=== PATIENT | female | born 1980 | race Caucasian/White ===

== ENCOUNTER 2019-09-24 10:00 | Emergency (ER) | payer SELFPAY ==
[2019-09-24 10:03] VITALS: BP 140/104; PULSE 107; RESP 17; TEMP 36.8; O2SAT 99; BMI 45.8
--- NOTE | 2019-09-24 10:06 | ED_ITS ---
Entered by Nav Seth, acting as scribe for Teja Byers DO Sep 24, 2019 10:00 HPI - General Adult General: Chief complaint: General Medical Stated complaint: DIZZY Time Seen by Provider: 09/24/19 10:10 History of Present Illness: HPI narrative: 38 yo female presents with dizziness. Pt states that she has been coughing and dealing with an upper respiratory cold. Pt states that she has had this for a few weeks. pt states that she was seen at her PCPs office the first week she had this, but she feels like she is getting worse. Pt states that she has had a fever off and on, it measured up to 101. 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 Associated symptoms: Reports dyspnea; Deny chest pain, malaise, nausea, rash or vomiting Review of Systems Const: Reports: fever, chills and body aches; Denies: change in appetite, fatigue or malaise ENMT: Denies: throat pain, ear pain, nasal discharge or nasal congestion Card: Denies: chest pain, edema, shortness of breath on exertion or shortness of breath when lying down Resp: Reports: shortness of breath and productive cough; Denies: non-productive cough GI: Denies: abdominal pain, nausea, vomiting, vomiting blood, coffee grounds in vomit, diarrhea, constipation, bloating, blood in stool or black tarry stool : Denies: flank pain, difficulty urinating, painful urination, urinary frequency or urinary urgency Skin/Breast: Denies: rash or itching PFSH ED PFSH: Statuses (acute, chronic, etc) shown below reflect problem list status as previously entered and may not be historically accurate Medical History Bronchitis (Acute) Headache (Acute) Surgical History History of cholecystectomy (Acute) Hx of tonsillectomy (Acute) Social History Smoking and tobacco status: current every day smoker Physical Exam Const: COMMON NORMALS: no apparent distress GENERAL APPEARANCE: cooperative and comfortable ORIENTATION/CONSCIOUSNESS: Yes awake, Yes oriented to person, Yes oriented to place and Yes oriented to time HENMT: COMMON NORMALS: normocephalic, head/scalp atraumatic, hearing grossly normal bilaterally, external ears normal, EAC's normal, TM's normal bilaterally, nasal mucous membranes and turbinates normal, moist oral mucous membranes and oropharynx normal HEAD & SCALP: normocephalic and atraumatic NOSE: nasal mucous membranes and turbinates normal EXTERNAL EAR: Yes external ears normal EXTERNAL AUDITORY CANAL: EAC's normal TYMPANIC MEMBRANE: TM's normal bilaterally Eye: COMMON NORMALS: PERRL, EOMs intact bilaterally, conjunctivae normal and no scleral icterus CONJUNCTIVA: Yes conjunctivae normal PUPIL: Yes PERRL Neck/C-Spine: COMMON NORMALS: full ROM, no lymphadenopathy, supple and no JVD Lymph: LYMPHATIC: no lymphadenopathy noted and no lymphedema noted Resp: COMMON NORMALS: normal respiratory effort, no retractions and no use of accessory muscles AUSCULTATION: wheezes (mild) throughout Cardio: COMMON NORMALS: no JVD, regular rate, regular rhythm and no murmurs RATE: regular rate RHYTHM: regular rhythm GI: COMMON NORMALS: soft to palpation and no hepatosplenomegaly AUSCULTATION: Yes normoactive bowel sounds PALPATION: Yes soft, No tender, No guarding and Yes no hepatosplenomegaly Extremity: COMMON NORMALS: normal to inspection, normal capillary refill, no clubbing, cyanosis or edema, no calf tenderness and no pedal edema Neuro: SENSORIUM/ORIENTATION: Yes oriented to person, Yes oriented to place and Yes oriented to time Skin: COMMON NORMALS: no rashes or lesions noted GENERAL SKIN EXAM: no rashes or lesions noted Course Vital Signs: Vital signs: Vital Signs Temperature 98.3 F 09/24/19 10:03 Pulse Rate 99 09/24/19 13:14 Respiratory Rate 18 09/24/19 13:14 Blood Pressure 139/100 09/24/19 13:14 Pulse Oximetry 99 09/24/19 13:14 [facility] - General Adult Lab Data: Labs: Lab Results 09/24/19 09/24/19 09/24/19 Range/Units 10:55 10:57 10:57 WBC 14.4 H (4.0-10.0) 10^3/ uL RBC 3.97 L (4.1-5.3) 10^6/u L Hgb 11.5 (11.5-15.3) g/dL Hct 34.4 L (37.0-47.0) % MCV 86.6 (81-99) fL MCH 29.0 (28.0-34.0) pg MCHC 33.4 (30.0-36.0) g/dL RDW 17.8 H (12.1-15.1) % Plt Count 268 (130-400) 10^3/c mm MPV 9.8 (7.4-10.4) fL Neut % (Auto) 73.5 % Lymph % (Auto) 17.1 % Oliver % (Auto) 6.4 % Eos % (Auto) 2.0 % Baso % (Auto) 0.6 % Neut # (Auto) 10.6 H (1.8-7.7) 10^3/u L Lymph # (Auto) 2.5 (0.8-4.8) 10^3/u L Oliver # (Auto) 0.9 (0.2-0.9) 10^3/u L Eos # (Auto) 0.3 (0.0-0.8) 10^3/u L Baso # (Auto) 0.1 (0.0-0.1) 10^3/u L Nucleated RBC % (a uto) 0 % Nucleated RBCs # 0.0 /100WBC Sodium 135 L (136-145) mmol/L Potassium 4.4 (3.5-5.1) mmol/L Chloride 100 (98-107) mmol/L Carbon Dioxide 26 (22-29) mmol/L Anion Gap 13.4 (5-19) BUN 10 (6-20) mg/dL Creatinine 0.5 (0.5-0.9) mg/dL GFR Calculation 138.8 H (90-130) mL/min Glucose 110 (65-115) mg/dL Calcium 9.5 (8.5-10.5) mg/dL Total Bilirubin 1.1 (0.15-1.2) mg/dL AST 15 (0-32) U/L ALT 15 (0-33) U/L Alkaline Phosphata se 94 (35-105) IU/L Total Protein 7.3 (6.6-8.7) g/dL Albumin 3.8 (3.5-5.2) g/dL Globulin 3.5 (1.3-4.6) g/dL HCG, Qual (Negative) Urine Color (Yellow) Urine Appearance (CLEAR) Urine pH (5-7) Ur Specific Gravit y (1.005-1.030) Urine Protein (Negative) Urine Glucose (UA) (Normal) Urine Ketones (Negative) Urine Occult Blood (Negative) Urine Nitrate (Negative) Urine Bilirubin (NEGATIVE) Urine Urobilinogen (Negative) mg/dL Ur Leukocyte Dianne ase (Negative) Influenza Type A A g Negative (Negative) POC Influenza B Ag Negative (Negative) 09/24/19 09/24/19 Range/Units 11:21 11:21 WBC (4.0-10.0) 10^3/ uL RBC (4.1-5.3) 10^6/u L Hgb (11.5-15.3) g/dL Hct (37.0-47.0) % MCV (81-99) fL MCH (28.0-34.0) pg MCHC (30.0-36.0) g/dL RDW (12.1-15.1) % Plt Count (130-400) 10^3/c mm MPV (7.4-10.4) fL Neut % (Auto) % Lymph % (Auto) % Oliver % (Auto) % Eos % (Auto) % Baso % (Auto) % Neut # (Auto) (1.8-7.7) 10^3/u L Lymph # (Auto) (0.8-4.8) 10^3/u L Oliver # (Auto) (0.2-0.9) 10^3/u L Eos # (Auto) (0.0-0.8) 10^3/u L Baso # (Auto) (0.0-0.1) 10^3/u L Nucleated RBC % (a uto) % Nucleated RBCs # /100WBC Sodium (136-145) mmol/L Potassium (3.5-5.1) mmol/L Chloride (98-107) mmol/L Carbon Dioxide (22-29) mmol/L Anion Gap (5-19) BUN (6-20) mg/dL Creatinine (0.5-0.9) mg/dL GFR Calculation (90-130) mL/min Glucose (65-115) mg/dL Calcium (8.5-10.5) mg/dL Total Bilirubin (0.15-1.2) mg/dL AST (0-32) U/L ALT (0-33) U/L Alkaline Phosphata se (35-105) IU/L Total Protein (6.6-8.7) g/dL Albumin (3.5-5.2) g/dL Globulin (1.3-4.6) g/dL HCG, Qual Negative (Negative) Urine Color Straw (Yellow) Urine Appearance Clear (CLEAR) Urine pH 7 (5-7) Ur Specific Gravit y 1.000 L (1.005-1.030) Urine Protein Neg (Negative) Urine Glucose (UA) Norm (Normal) Urine Ketones Negative (Negative) Urine Occult Blood Neg (Negative) Urine Nitrate Negative (Negative) Urine Bilirubin Neg (NEGATIVE) Urine Urobilinogen Norm (Negative) mg/dL Ur Leukocyte Dianne ase Negative (Negative) Influenza Type A A g (Negative) POC Influenza B Ag (Negative) Discharge Plan Discharge Patient Disposition: Home, Self-Care Clinical Impression: Bronchitis Condition: Stable Prescriptions: New Medrol (Michael) 4 mg tablets,dose pack See Rx Instructions .ROUTE .COMPLEX Qty: 21 RF: 0 doxycycline hyclate 100 mg tablet 100 mg PO BID 10 Days Qty: 20 RF: 0 Proair Digihaler 90 mcg/actuation aero powdr breath act w/sensor 2 inh INHALATION Q4H PRN (Reason: shortness of breath or wheezing) Qty: 1 RF: 0 No Action albuterol sulfate 90 mcg/actuation HFA aerosol inhaler 2 puff INHALATION Q6H PRN (Reason: Shortness Of Breath) RF: 0 Discharge Orders: Discharge Order (Routine); Ordered 09/24/19 Ordered By: Teja Byers Discharge Diet: Usual diet Discharge Activity: Increase activity as tolerated Activity Restrictions/Additional Instructions: Follow-up with your primary care doctor next week. Return to the emergency room if worsens Discharge Date/Time: 09/24/19 13:14 Coding Level of Care Code ED High Pressure Boiler Operator for Chg Fwd Exam Problem Focused The documentation recorded by the Rolo coffey Kialy, accurately reflects the service I personally performed and the decisions made by Zeeshan melchor Curtis L, DO Sep 24, 2019 10:00
[2019-09-24 11:05] LABS: Basophils # 0.1 10^3/uL (0.0-0.1); Basophils % 0.6 %; Eosinophils # 0.3 10^3/uL (0.0-0.8); Hematocrit 34.4 % (37.0-47.0); Hemoglobin 11.5 g/dL (11.5-15.3); Lymphocytes # 2.5 10^3/uL (0.8-4.8); Lymphocytes % 17.1 %; Mean Corpuscular HGB Conc 33.4 g/dL (30.0-36.0); Mean Corpuscular Volume 86.6 fL (81-99); Mean Platelet Volume 9.8 fL (7.4-10.4); Monocytes # 0.9 10^3/uL (0.2-0.9); Monocytes % 6.4 %; Neutrophils # 10.6 10^3/uL (1.8-7.7); Neutrophils % 73.5 %; Nucleated Red Blood Cells % 0 %; Platelet Count 268 10^3/cmm (130-400); Red Blood Count 3.97 10^6/uL (4.1-5.3); Red Cell Distribution Width 17.8 % (12.1-15.1); White Blood Count 14.4 10^3/uL (4.0-10.0)
--- NOTE | 2019-09-24 11:07 | XR_ITS ---
WS: [id number] ONE VIEW CHEST HISTORY: 38 years old Female with cough AP upright chest comparison 11/23/2018 FINDINGS: No pneumothorax, pleural effusion, consolidation/atelectasis. Cardiomediastinal silhouette and pulmon emani vascular markings are unremarkable. No subdiaphragmatic free air. XR/XR chest 1V portable [id number] IMPRESSION: No acute cardiopulmonary findings, and no significant change from 11/23/2018
[2019-09-24 11:17] VITALS: PULSE 91; RESP 16; O2SAT 97
[2019-09-24] MEDS: ipratropium-albuterol 3 mL Neb INHALATION (11:17)
[2019-09-24 11:18] LABS: Albumin Level 3.8 g/dL (3.5-5.2); Alkaline Phosphatase 94 IU/L (35-105); Anion Gap 13.4 (5-19); Aspartate Amino Transferase 15 U/L (0-32); Blood Urea Nitrogen 10 mg/dL (6-20); Calcium 9.5 mg/dL (8.5-10.5); Carbon Dioxide 26 mmol/L (22-29); Chloride 100 mmol/L (98-107); Globulin 3.5 g/dL (1.3-4.6); Glomerular Filtration Rate 138.8 mL/min (90-130); Glucose 110 mg/dL (65-115); Potassium 4.4 mmol/L (3.5-5.1); Sodium 135 mmol/L (136-145); Total Bilirubin 1.1 mg/dL (0.15-1.2); Total Protein 7.3 g/dL (6.6-8.7)
[2019-09-24 11:21] VITALS: PULSE 99
[2019-09-24 11:28] LABS: Alanine Aminotransferase 15 U/L (0-33)
[2019-09-24 11:33] LABS: HCG Qualitative Urine. Negative (Negative)
[2019-09-24 11:44] LABS: Influenza A by IFA Negative (Negative); Influenza B by IFA Negative (Negative)
[2019-09-24] MEDS: sodium chloride 0.9% 1,000 ML 999 ML IV (12:03)
[2019-09-24 12:11] LABS: Add Urine Microscopic? NO
[2019-09-24 12:35] LABS: Bilirubin Urine Neg (NEGATIVE); Blood Urine Neg (Negative); Glucose Urine UA Norm (Normal); Ketones Urine Negative (Negative); Leukocyte Esterase Urine Negative (Negative); Nitrate Urine Negative (Negative); Protein Urine Neg (Negative); Urine Appearance Clear (CLEAR); Urine Color Straw (Yellow); Urobilinogen Urine Norm (Negative); pH Urine 7 (5-7)
[2019-09-24 13:14] VITALS: BP 139/100; PULSE 99; RESP 18; O2SAT 99
== END 2019-09-24 13:14 | disposition home or self-care (01) ==
PROVIDERS: Emergency Provider Family Medicine
DX: J40 Bronchitis, not specified as acute or chronic (principal); F17.210 Nicotine dependence, cigarettes, uncomplicated
CPT/HCPCS: 36415; 71045; 80053; 81003; 81025; 85025; 87804; 94640; 96361; 96374; 96375; 99282; 99283; A9270; J2930; J7030

== ENCOUNTER 2020-02-07 09:53 | Emergency (ER) | payer SELFPAY ==
[2020-02-07 10:05] VITALS: BMI 47.8
[2020-02-07 10:08] VITALS: BP 159/128; PULSE 96; RESP 18; TEMP 36.8; O2SAT 97
--- NOTE | 2020-02-07 10:14 | W.ED.DENTAL ---
HPI - Dental/Oral General: Chief complaint: Dental/Oral Stated complaint: DENTAL PAIN/SWELLING Time Seen by Provider: 02/07/20 10:04 History of Present Illness: MD Complaint: tooth pain Location: Tooth # (18 and 19) Onset (ago): day(s) (Dental pain started yesterday and then today she woke up with left sided face swelling.) Duration: constant Severity: moderate Severity scale (1-10): 9 Relieving factors: nothing Exacerbating factors: chewing Context: history of dental caries and poor dental care Associated symptoms: Denies fever(s) or odynophagia Review of Systems Const: Denies: fever(s), chills or fatigue Eyes: Denies: change in vision or eye discomfort ENMT: Reports: dental pain; Denies: throat pain, odynophagia, nasal discharge or nasal congestion Card: Denies: chest pain, palpitations, edema, swelling of feet/ankles, dyspnea on exertion or orthopnea Resp: Denies: dyspnea, productive cough or non-productive cough GI: Denies: abdominal pain, nausea, vomiting, diarrhea, constipation or hematochezia : Denies: flank pain, dysuria or hematuria Musc: Denies: neck pain, back pain or extremity swelling Skin/Breast: Denies: rash or new lesions Neuro: Denies: headache(s), numbness in extremities or weakness in extremities PFSH ED PFSH: Medical History Bronchitis Headache Surgical History History of cholecystectomy Hx of tonsillectomy Social History Smoking and tobacco status: current every day smoker Female Reproductive History: Date of last menstrual period: 01/30/20 Physical Exam Const: COMMON NORMALS: patient oriented x3 and alert GENERAL APPEARANCE: cooperative and comfortable HENMT: COMMON NORMALS: normocephalic HEAD & SCALP: normocephalic FACE & SINUS: edema on the left (Mild swelling on left lower mandible.) mandible and Facial tenderness on exam of face and sinuses on the left mandible MOUTH: Normal oral and palatal mucosa present TEETH & GINGIVA: Yes caries, Yes gingiva abnormal (left side of mandible) edematous and Yes poor dentition THROAT: posterior oropharynx normal and uvula midline Neck/C-Spine: COMMON NORMALS: supple GENERAL: Yes normal visual inspection Resp: COMMON NORMALS: normal respiratory effort, No retractions, No use of accessory muscles and clear to auscultation bilaterally AUSCULTATION: clear to auscultation bilaterally Cardio: COMMON NORMALS: regular rate, regular rhythm, S1 normal heart sound present, S2 normal heart sound present, No gallops present (Cardio), No clicks present (Cardio), No murmurs present (Cardio) and Peripheral pulses 2+ throughout RATE: regular rate RHYTHM: regular rhythm HEART SOUNDS: S1 normal heart sound present and S2 normal heart sound present PERIPHERAL PULSES: Peripheral pulses 2+ throughout GI: COMMON NORMALS: Normal to inspection, nondistended, normoactive bowel sounds present, Soft to palpation, non-tender and no masses PALPATION: Yes Soft to palpation : COMMON NORMALS: Yes no CVA tenderness BLADDER/KIDNEY EXAM: Yes no CVA tenderness Back/Pelvis: COMMON NORMALS: no CVA tenderness Extremity: COMMON NORMALS: normal to inspection Neuro: COMMON NORMALS: patient oriented x3 and moves all extremities SENSORIUM/ORIENTATION: Yes alert Skin: COMMON NORMALS: no rashes or lesions noted GENERAL SKIN EXAM: no rashes or lesions noted and dry skin Course Vital Signs: Vital signs: Vital Signs Temperature 98.3 F 02/07/20 10:08 Pulse Rate 96 02/07/20 10:08 Respiratory Rate 18 02/07/20 10:08 Blood Pressure 159/128 02/07/20 10:08 Pulse Oximetry 97 02/07/20 10:08 Discharge Plan Discharge Patient Disposition: Home, Self-Care Clinical Impression: Pain due to dental caries Condition: Stable Prescriptions: New clindamycin HCl 150 mg capsule 300 mg PO QID 7 Days Qty: 56 RF: 0 No Action albuterol sulfate 90 mcg/actuation HFA aerosol inhaler 2 puff INHALATION Q6H PRN (Reason: Shortness Of Breath) RF: 0 Medrol (Michael) 4 mg tablets,dose pack See Rx Instructions .ROUTE .COMPLEX Qty: 21 RF: 0 Proair Digihaler 90 mcg/actuation aero powdr breath act w/sensor 2 inh INHALATION Q4H PRN (Reason: shortness of breath or wheezing) Qty: 1 RF: 0 Discharge Orders: Discharge Order (Routine); Ordered 02/07/20 Ordered By: Yao Pickens Discharge Diet: Advance as tolerated and Regular Discharge Activity: Resume usual activity Patient Instructions: Dental Caries (ED) Activity Restrictions/Additional Instructions: Contact dentist and set up an appointment to get dental pain evaluated as soon as possible. Take full course of antibiotic as prescribed. Take Tylenol or ibuprofen for pain. Coding Level of Care Code ED Design Sales Consultant for Chg Fwd Exam Comprehensive
[2020-02-07] MEDS: clindamycin 150 mg Capsule 300 MG PO (10:34)
[2020-02-07] MEDS: HYDROcodone-acetaminophen 7.5-325 mg Tablet 1 TAB PO (10:35)
== END 2020-02-07 10:35 | disposition home or self-care (01) ==
LOC: ER 10:48
PROVIDERS: Emergency Provider Physician Assistant
DX: K02.9 Dental caries, unspecified (principal); F17.210 Nicotine dependence, cigarettes, uncomplicated
CPT/HCPCS: 12345; 99281; 99283

== ENCOUNTER 2021-01-21 10:30 | Emergency (ER) | payer SELFPAY ==
[2021-01-21 10:49] VITALS: BP 128/87; PULSE 81; RESP 18; TEMP 36.8; O2SAT 97; BMI 47.8
--- NOTE | 2021-01-21 11:31 | US_ITS ---
WS: [id number] TRANSVAGINAL PELVIC ULTRASOUND HISTORY: pelvic pain bleeding COMPARISON: None available. Uterus: 8.5 cm x 5.8 cm x 5.3 cm. Normal size anteverted uterus. Hypoechoic ill-defined area with sha dowing towards the fundus of the uterus measures 2.2 x 3.7 x 3.3 cm and is likely a small fibroid. Endometrium: 0.8 cm. Echogenic endometrium. Endometrium is not thickened but there is irregular with increased echogenicity and heterogeneity. Right ovary: 2.5 cm x 2.7 cm x 1.7 cm. Normal size and vascularity, no cystic or solid masses. Left ovary: 2.2 cm x 1.4 cm x 2.2 cm. Normal size and vascularity, no cystic or solid masses. US/US transvaginal [id number] IMPRESSION: 1. Heterogeneous, mixed echogenicity endometrium. Hyperplasia or polyps or arlin plasm should be considered as possible etiologies. Recommend direct visualizati on at hysteroscopy. 2. Small fundal fibroid with a maximum diameter of 3.7 cm.
[2021-01-21 11:40] VITALS: BP 135/95; PULSE 100; RESP 15; O2SAT 100
[2021-01-21 11:46] LABS: Basophils # 0.1 10^3/uL (0.0-0.1); Basophils % 0.9 %; Eosinophils # 0.4 10^3/uL (0.0-0.8); Eosinophils % 2.2 %; Hematocrit 37.3 % (37.0-47.0); Lymphocytes # 3.8 10^3/uL (0.8-4.8); Lymphocytes % 24.1 %; Mean Corpuscular HGB Conc 34.9 g/dL (30.0-36.0); Mean Corpuscular Volume 86.1 fL (81-99); Monocytes # 0.9 10^3/uL (0.2-0.9); Monocytes % 5.3 %; Neutrophils # 10.64 10^3/uL (1.8-7.7); Neutrophils % 66.9 %; Nucleated Red Blood Cells % 0 %; Platelet Count 324 10^3/cmm (130-400); Red Blood Count 4.33 10^6/uL (4.1-5.3); Red Cell Distribution Width 19.1 % (12.1-15.1); White Blood Count 15.9 10^3/uL (4.0-10.0)
--- NOTE | 2021-01-21 11:47 | W.ED.FEMALGU ---
HPI - Female Genitourinary General: Chief complaint: Vaginal Bleeding Stated complaint: Period for 3 wks, ABD pain, Sent from HD Time Seen by Provider: 01/21/21 11:31 History of Present Illness: HPI Narrative: 40-year-old female presents emergency room with complaint of persistent vaginal bleeding for the last several weeks she received her Depo-Medrol in late November states she is essentially been having bleeding since then. She denies any lightheadedness or dizziness she has been seen in the coming out from has not seen a water gas operator. She is not on any other oral contraceptives. MD elicited complaint: vaginal bleeding Onset (ago): week(s) Location of symptoms: pelvis Severity: moderate Quality of pain: cramping Consistency: intermittent Vaginal discharge: none Vaginal bleeding: heavy and bright red Exacerbating factors: none Relieving factors: none Associated symptoms: Deny abdominal pain or nausea Treatment prior to arrival: none Date of Last Menstrual Period: 01/21/21 Review of Systems Const: Denies: fever(s), chills, body aches, change in appetite, fatigue or malaise ENMT: Denies: throat pain, ear or mastoid pain, nasal discharge or nasal congestion Card: Denies: chest pain, edema, dyspnea on exertion or orthopnea Resp: Denies: dyspnea, productive cough or non-productive cough GI: Denies: abdominal pain, nausea, vomiting, hematemesis, coffee ground emesis, diarrhea, constipation, bloating, hematochezia or melena : Denies: flank pain, difficulty voiding, dysuria, urinary frequency or urinary urgency Skin/Breast: Denies: rash or pruritus PFSH ED PFSH: Medical History Bronchitis Headache Surgical History History of cholecystectomy Hx of tonsillectomy Social History Smoking and tobacco status: current every day smoker Female Reproductive History: Date of last menstrual period: 01/21/21 Physical Exam Const: COMMON NORMALS: no acute distress GENERAL APPEARANCE: cooperative and comfortable ORIENTATION/CONSCIOUSNESS: Yes awake, Yes oriented to person, Yes oriented to place and Yes oriented to time HENMT: COMMON NORMALS: normocephalic, atraumatic, hearing grossly normal bilaterally and external ears normal HEAD & SCALP: normocephalic and atraumatic EXTERNAL EAR: Yes external ears normal Neck/C-Spine: COMMON NORMALS: no JVD Resp: COMMON NORMALS: normal respiratory effort, No retractions, No use of accessory muscles and clear to auscultation bilaterally AUSCULTATION: clear to auscultation bilaterally Cardio: COMMON NORMALS: no JVD, regular rate, regular rhythm and No murmurs present (Cardio) RATE: regular rate RHYTHM: regular rhythm GI: COMMON NORMALS: Soft to palpation and No hepatosplenomegaly present AUSCULTATION: Yes normoactive bowel sounds PALPATION: Yes Soft to palpation, No Tenderness to palpation present (GI), No Guarding due to palpation present (GI) and Yes No hepatosplenomegaly present Extremity: COMMON NORMALS: normal to inspection, capillary refill normal, no clubbing, cyanosis or edema, no calf tenderness and no pedal edema Neuro: SENSORIUM/ORIENTATION: Yes oriented to person, Yes oriented to place and Yes oriented to time Skin: COMMON NORMALS: no rashes or lesions noted GENERAL SKIN EXAM: no rashes or lesions noted Course Vital Signs: Vital signs: Vital Signs Temperature 98.2 F 01/21/21 10:49 Pulse Rate 100 01/21/21 12:21 Respiratory Rate 15 01/21/21 12:21 Blood Pressure 135/95 01/21/21 12:21 Pulse Oximetry 100 01/21/21 12:21 MDM - Female MDM Narrative: Medical decision making narrative: Uterine fibroids start medroxyprogesterone p.o. withdrawal bleed advised patient take 10 mg daily at the end of the 10 days she will likely have another heavy. We will get her set up for gynecology. No evidence of anemia. Lab Data: Labs: Lab Results 01/21/21 01/21/21 01/21/21 Range/Units 11:30 11:30 11:30 WBC 15.9 H (4.0-10.0) 10^3/ uL RBC 4.33 (4.1-5.3) 10^6/u L Hgb 13.0 (11.5-15.3) g/dL Hct 37.3 (37.0-47.0) % MCV 86.1 (81-99) fL MCH 30.0 (28.0-34.0) pg MCHC 34.9 (30.0-36.0) g/dL RDW 19.1 H (12.1-15.1) % Plt Count 324 (130-400) 10^3/c mm MPV 10.0 (7.4-10.4) fL Neut % (Auto) 66.9 % Lymph % (Auto) 24.1 % [place] % (Auto) 5.3 % Eos % (Auto) 2.2 % Baso % (Auto) 0.9 % Neut # (Auto) 10.64 H (1.8-7.7) 10^3/u L Lymph # (Auto) 3.8 (0.8-4.8) 10^3/u L [place] # (Auto) 0.9 (0.2-0.9) 10^3/u L Eos # (Auto) 0.4 (0.0-0.8) 10^3/u L Baso # (Auto) 0.1 (0.0-0.1) 10^3/u L Nucleated RBC % (a uto) 0 % Nucleated RBCs # 0.0 /100WBC Sodium 141 (136-145) mmol/L Potassium 4.0 (3.5-5.1) mmol/L Chloride 104 (98-107) mmol/L Carbon Dioxide 27 (22-29) mmol/L Anion Gap 14.0 (5-19) BUN 7 (6-20) mg/dL Creatinine 0.6 (0.5-0.9) mg/dL GFR Calculation 111.3 (90-130) mL/min Glucose 94 (65-115) mg/dL Calculated Osmolal ity 290 (285-295) mOsm/k g Calcium 8.9 (8.5-10.5) mg/dL Total Bilirubin 0.6 (0.15-1.2) mg/dL AST 17 (0-32) U/L ALT 18 (0-33) U/L Alkaline Phosphata se 101 (35-105) IU/L Total Protein 7.8 (6.6-8.7) g/dL Albumin 4.3 (3.5-5.2) g/dL Globulin 3.5 (1.3-4.6) g/dL HCG, Qual Negative (Negative) Discharge Plan Discharge Patient Disposition: Home Clinical Impression: Menometrorrhagia, Fibroid, uterine Condition: Stable Prescriptions: New medroxyprogesterone 10 mg tablet 10 mg PO DAILY 10 Days Qty: 10 RF: 0 No Action Proair Digihaler 90 mcg/actuation aero powdr breath act w/sensor 2 inh INHALATION Q4H PRN (Reason: shortness of breath or wheezing) Qty: 1 RF: 0 aspirin 325 mg Tablet 650 mg PO PRN RF: 0 Tylenol Extra Strength 500 mg Tablet 1,000 mg PO PRN RF: 0 multivitamin Tablet 1 tab PO DAILY RF: 0 Discharge Orders: Discharge ED (Routine); Ordered 01/21/21 Ordered By: Teja Byers Discharge Diet: Usual diet Discharge Activity: Resume usual activity Patient Instructions: Opioid Safety Activity Restrictions/Additional Instructions: Case management will call with referral to gynecology Coding Level of Care Code ED Certified Meeting Professional for Maura Casas
[2021-01-21 12:01] LABS: Alanine Aminotransferase 18 U/L (0-33); Albumin Level 4.3 g/dL (3.5-5.2); Alkaline Phosphatase 101 IU/L (35-105); Aspartate Amino Transferase 17 U/L (0-32); Blood Urea Nitrogen 7 mg/dL (6-20); Calcium 8.9 mg/dL (8.5-10.5); Carbon Dioxide 27 mmol/L (22-29); Chloride 104 mmol/L (98-107); Globulin 3.5 g/dL (1.3-4.6); Glomerular Filtration Rate 111.3 mL/min (90-130); Glucose 94 mg/dL (65-115); Osmolality Calculated 290 mOsm/kg (285-295); Sodium 141 mmol/L (136-145); Total Bilirubin 0.6 mg/dL (0.15-1.2); Total Protein 7.8 g/dL (6.6-8.7)
[2021-01-21 12:05] LABS: HCG Qualitative Urine. Negative (Negative)
[2021-01-21 12:21] VITALS: BP 135/95; PULSE 100; RESP 15; O2SAT 100
--- NOTE | 2021-01-22 14:39 | DCPLANNER ---
foster care case manager had message to schedule a follow up appointment for patient with [facility]. foster care case manager called [facility], spoke with Tina. foster care case manager gave clinic patients information. foster care case manager was told that patients information would be printed and reviewed. Clinic will call patient with appointment information.
--- NOTE | 2021-01-24 07:21 | DCPLANNER ---
Patient has a follow up appointment scheduled for Thursday, February 06, 2021 at 2:30 with Tina Ruiz at [facility]. Clinic will call patient with appointment information.
--- NOTE | 2021-02-20 07:22 | DCPLANNER ---
Patient had a follow up appointment scheduled for 02.06.21 with MICRO COMPUTER DATA PROCESSOR, Tina Ruiz at [facility] - patient did attend appointment.
== END 2021-01-21 12:22 | disposition home or self-care (01) ==
PROVIDERS: Emergency Provider Family Medicine
DX: N92.1 Excessive and frequent menstruation with irregular cycle (principal); D25.9 Leiomyoma of uterus, unspecified; Z79.82 Long term (current) use of aspirin; F17.210 Nicotine dependence, cigarettes, uncomplicated
CPT/HCPCS: 76830; 80053; 81025; 85025; 99283

== ENCOUNTER → 2021-02-06 15:28 | Outpatient (BNVA) | payer SELFPAY | PROVIDERS: Visit Provider Nurse Practitioner Women's Health | DX: N93.9 Abnormal uterine and vaginal bleeding, unspecified (principal); Z11.3 Encounter for screening for infections with a predominantly sexual mode of transmission; R10.2 Pelvic and perineal pain; R10.9 Unspecified abdominal pain; D72.829 Elevated white blood cell count, unspecified | CPT/HCPCS: 84443; 87086; 87491; 87591; 87661 ==

== ENCOUNTER 2021-02-11 13:06 | Outpatient (CLI) | payer SELFPAY ==
--- NOTE | 2021-02-11 15:00 | CT_ITS ---
WS: [id number] CT ABDOMEN AND PELVIS NONCONTRAST HISTORY: R10.9 - Unspecified abdominal pain TECHNIQUE: Imaging performed through the abdomen and pelvis. Coronal and sagittal reformats are submi tted. All CT scans at [facility] use at least one of these dose optimization techniques: automated exposure control; mA and/or kV adjustment per patient size (includes targeted exams where d ose is matched to clinical indication); or iterative reconstruction. DLP: 1122.4 mGycm COMPARISON: None available. Lower thorax: Lung bases are clear. Visualized heart is normal. No hiatal hernia. Liver: Liver is moderately enlarged extending over length of 20 cm with low attenuation from hepatic steatosis. Focal area of very subtle decreased attenuation medial LEFT lobe of the liver towards the jen hepatis. Cannot be further characterize and may be hepatic steatosis. No mass or bile duct dila tation. Gallbladder: Prior cholecystectomy. Pancreas: Normal size and attenuation. Normal pancreatic duct. No pancreatitis or mass. Spleen: Normal. Adrenal glands: Normal. No mass. Right kidney: Normal size kidney with no mass or hydronephrosis. Left kidney: Normal size kidney with no mass or hydronephrosis. Aorta: Normal abdominal aorta, no aneurysm or atherosclerosis. No free fluid, intraperitoneal air or significant lymphadenopathy. GI tract: Normal appendix. No GI tract obstruction or diverticulosis. Abdominal wall: Negative. No hernia. Pelvis: Normal. Midline uterus. No pelvic mass. Osseous structures: 6 mm L5 anterolisthesis due to bilateral pars defects. Advanced degenerative disc disease and vacuum disc phenomenon at L5-S1. CT/CT abdomen pelvis wo con [id number] IMPRESSION: 1. No acute abdominal or pelvic abnormalities identified. 2. Hepatic steatosis and moderate hepatomegaly. Focal area of subtle decreased attenuation in the medial posterior LEFT lobe of the liver. Probably related t o hepatic steatosis. Early metastatic site not excluded. This area may not be r eadily visualized by ultrasound. Consider follow-up abdomen CT with IV contrast . 3. Normal appendix. 4. Grade 1, L5 spondylolisthesis and spondylolysis. 5. Prior cholecystectomy.
== END 2021-02-11 13:07 | disposition home or self-care (01) ==
LOC: RADWPI 13:07
PROVIDERS: Visit Provider Nurse Practitioner Women's Health
DX: R10.9 Unspecified abdominal pain (principal); R10.2 Pelvic and perineal pain; Z90.49 Acquired absence of other specified parts of digestive tract; M43.16 Spondylolisthesis, lumbar region; M47.816 Spondylosis without myelopathy or radiculopathy, lumbar region; K76.0 Fatty (change of) liver, not elsewhere classified; R16.0 Hepatomegaly, not elsewhere classified
CPT/HCPCS: 74176

== ENCOUNTER → 2021-03-04 09:22 | Outpatient (BNVA) | payer SELFPAY | PROVIDERS: Visit Provider Family Medicine | DX: I10 Essential (primary) hypertension (principal); K21.9 Gastro-esophageal reflux disease without esophagitis; K76.0 Fatty (change of) liver, not elsewhere classified | CPT/HCPCS: 82105; 85025; 86705; 86706; 86803; 87340 ==

== ENCOUNTER 2021-03-18 08:38 | Outpatient (CLI) | payer SELFPAY ==
[2021-03-18] MEDS: iohexol 300 mg/mL 100 mL Btl IV (09:26)
--- NOTE | 2021-03-18 10:30 | CT_ITS ---
WS: [id number] CT scan of the abdomen and pelvis with Oral and IV contrast. Additional two-dimensional coronal and s agittal reconstruction was performed. 03/18/2021 Clinical Data: K76.0 - Fatty (change of) liver, not elsewhere classified Comparison: CT abdomen and pelvis, 02/11/2021. DLP: 1118.[address] scans at [facility] use at least one of these dose optimization techniques: automat ed exposure control; mA and/or kV adjustment per patient size (includes targeted exams where dose is matched to clinical indication); or iterative reconstruction. Findings: The lower lungs show no nodules, masses or effusions. The liver, spleen, adrenal glands and pancreas are normal. No metastatic lesions are seen in the radha er. The portal vein shows normal flow. There are clips in the gallbladder fossa from a cholecystectom y. The kidneys show equal bilateral contrast excretion with no cyst or masses. The abdominal aorta is normal in size. No appendicitis or diverticulitis is seen. Oral contrast is in the stomach and and minimally in the s mall bowel and there is no bowel dilatation. No abscess, adenopathy, ascites, mass, obstruction or fr ee air is seen. The bladder is unremarkable. There is a low density 1.3 cm region in the right superior uterus which may represent a leiomyoma. No inguinal hernia is seen. The bones of the lower thorax, lumbar spine, pelvis, and hips show an L5-S1 subluxation.. CT/CT abdomen pelvis w con* [id number] Impression: 1. Negative for metastatic change in the liver. 2. Low density region in uterus representing leiomyoma. 3. Negative for acute intra-abdominal or pelvic abnormalities.
== END 2021-03-18 08:39 | disposition home or self-care (01) ==
LOC: RADWPI 08:42
PROVIDERS: PCP Family Medicine; Visit Provider Family Medicine
DX: K76.0 Fatty (change of) liver, not elsewhere classified (principal); K76.9 Liver disease, unspecified
CPT/HCPCS: 74177; Q9967

== ENCOUNTER → 2021-03-22 12:55 | Outpatient (BNVA) | payer SELFPAY | PROVIDERS: PCP Family Medicine; Visit Provider Obstetrics & Gynecology | DX: D25.1 Intramural leiomyoma of uterus (principal); D25.0 Submucous leiomyoma of uterus; N93.9 Abnormal uterine and vaginal bleeding, unspecified; I10 Essential (primary) hypertension | CPT/HCPCS: 81025; 88305 ==

== ENCOUNTER 2021-03-31 15:42 | Emergency (ER) | payer SELFPAY ==
[2021-03-31 15:52] VITALS: BP 145/95; PULSE 91; RESP 17; TEMP 37.2; O2SAT 97
--- NOTE | 2021-03-31 16:08 | W.ED.CHESTPA ---
HPI - Chest Pain General: Chief Complaint: Chest Pain Stated Complaint: chest pains Time Seen by Provider: 03/31/21 16:04 Source: patient Mode of arrival: ambulatory Limitations: no limitations History of Present Illness: HPI narrative: Patient is a 40-year-old female who presents to the ED today with a complaint of chest pain that occurred as she was lifting a heavy patient to roll her over. 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 She states pain has continued. Episode occurred around noon today. She denies any radiation to her discomfort. Pain is reproduced with palpation. She does not complain of shortness of breath or difficulty breathing. She has no previous cardiac history. MD complaint: chest pain Onset (ago): hour(s) Timing of current episode: constant Prior episodes: No Onset: other (after lifting ) Pain location: substernal Pain radiation: none Severity: mild Relieving factors: nothing Exacerbating factors: palpation and movement Associated symptoms: Deny abdominal pain, dyspnea, fever(s), nausea, palpitations, syncope or vomiting Treatment prior to arrival: none Review of Systems Const: Denies: fever(s), chills, body aches, fatigue or malaise Card: Reports: chest pain; Denies: palpitations, irregular heart rhythm, edema, swelling of feet/ankles, lightheadedness, syncope, pre-syncope, dyspnea on exertion, orthopnea, leg pain with exertion or acrocyanosis Resp: Denies: dyspnea, productive cough, non-productive cough or chest congestion GI: Denies: abdominal pain, nausea or vomiting Musc: Denies: neck pain or back pain Neuro: Denies: headache(s), numbness in extremities, sensory changes or dizziness PFS ED PFSH: Medical History Bronchitis Headache Hx of tendinitis R hand No pertinent past medical history neghx: htn,dm,thyroid,dvt/pe PCP: None Surgical History History of cholecystectomy Hx of melanoma excision (~1994) thoracic area Hx of removal of cyst right foot Hx of tonsillectomy Hx of tubal ligation Family History Grandmother Diabetes Maternal and Paternal Hypertension Maternal and Paternal Stroke Maternal Thyroid disease Maternal Father Hypertension Stroke Grandfather Hypertension Maternal and Paternal Stroke Paternal Mother Colon cancer dx age 58 Denies family history of Ovarian cancer Heart disease Breast cancer Uterine cancer Social History Smoking and tobacco status: current every day smoker Female Reproductive History: Date of last menstrual period: 01/21/21 Physical Exam Const: COMMON NORMALS: no acute distress, patient oriented x3, no limitations and alert GENERAL APPEARANCE: cooperative NUTRITIONAL APPEARANCE: obese morbidly obese ORIENTATION/CONSCIOUSNESS: Yes awake, Yes oriented to person, Yes oriented to place and Yes oriented to time Chest: COMMONS NORMALS: normal inspection of the chest OTHER: pts pain is reproducible by palpation to sternum Resp: COMMON NORMALS: normal respiratory effort and clear to auscultation bilaterally AUSCULTATION: clear to auscultation bilaterally Cardio: COMMON NORMALS: regular rate and regular rhythm RATE: regular rate RHYTHM: regular rhythm Extremity: COMMON NORMALS: no calf tenderness and no pedal edema Neuro: COMMON NORMALS: patient oriented x3 SENSORIUM/ORIENTATION: Yes alert, Yes oriented to person, Yes oriented to place and Yes oriented to time Skin: NARRATIVE SKIN EXAM: warm and dry; no diaphoresis Course Vital Signs: Vital signs: Vital Signs Temperature 97.5 F L 03/31/21 16:09 Pulse Rate 85 03/31/21 16:09 Respiratory Rate 16 03/31/21 16:09 Blood Pressure 119/79 03/31/21 16:09 Pulse Oximetry 97 03/31/21 16:09 MDM - Chest Pain MDM Narrative: Medical decision making narrative: Patient's history and physical exam is consistent with chest wall strain. She was offered full cardiac work-up however patient denies. EKG performed in triage shows no ischemic changes. Return to ED precautions given. Otherwise recommend conservative treatment. EKG Data^: EKG 1: EKG interpretation date: 03/31/21 EKG interpretation time: 15:50 Interpretation: Sinus rhythm Rate 88 Incomplete RBBB No acute ST elevation or depression changes noted Discharge Plan Discharge Patient Disposition: Home Clinical Impression: Chest wall muscle strain Qualifiers: Encounter type: initial encounter Qualified Code(s): S29.011A - Strain of muscle and tendon of front wall of thorax, initial encounter Condition: Stable Prescriptions: No Action spironolactone 25 mg tablet 12.5 mg PO DAILY RF: 0 norethindrone acetate 5 mg tablet 5 mg PO DAILY 30 Days Qty: 30 RF: 2 omeprazole 40 mg capsule,delayed release(DR/EC) 40 mg PO DAILY 30 Days Qty: 30 RF: 0 Proair Digihaler 90 mcg/actuation aero powdr breath act w/sensor 2 inh INHALATION Q4H PRN (Reason: shortness of breath or wheezing) Qty: 1 RF: 0 multivitamin Tablet 1 tab PO DAILY RF: 0 Discharge Orders: Discharge ED (Routine); Ordered 03/31/21 Ordered By: Kimmie Landis Referrals: June Heredia MD [Primary Care Provider] - Patient Instructions: Chest Pain - Chest Wall Activity Restrictions/Additional Instructions: As we discussed you may use Tylenol/Motrin as needed for discomfort as well as ice and heat. You need to return to the emergency department for worsening chest pain, shortness of breath, difficulty breathing, dizziness, passing out episodes, or any other concerns you may have. Hope you begin to feel better soon. Coding Level of Care Code ED Automation Developer for Maura Fwvince Exam Detailed
[2021-03-31 16:09] VITALS: BP 119/79; PULSE 85; RESP 16; TEMP 36.4; O2SAT 97
[2021-03-31 16:27] VITALS: BP 125/98; PULSE 86; RESP 16; TEMP 36.6
== END 2021-03-31 16:31 | disposition home or self-care (01) ==
PROVIDERS: Emergency Provider Physician Assistant; PCP Family Medicine
DX: S29.011A Strain of muscle and tendon of front wall of thorax, initial encounter (principal); F17.210 Nicotine dependence, cigarettes, uncomplicated; X50.0XXA Overexertion from strenuous movement or load, initial encounter; Y93.F2 Activity, caregiving, lifting; Y92.129 Unspecified place in nursing home as the place of occurrence of the external cause; Y99.0 Civilian activity done for income or pay
CPT/HCPCS: 99281

== ENCOUNTER → 2021-05-24 13:43 | Outpatient (BNVA) | payer OTHER, SELFPAY | PROVIDERS: PCP Family Medicine; Visit Provider Obstetrics & Gynecology | DX: D25.0 Submucous leiomyoma of uterus (principal); D25.1 Intramural leiomyoma of uterus; N93.9 Abnormal uterine and vaginal bleeding, unspecified; Z20.822 Contact with and (suspected) exposure to COVID-19 | CPT/HCPCS: 87635 ==

== ENCOUNTER 2021-05-29 11:42 | Observation (INO) | payer SELFPAY ==
[2021-05-27 10:45] VITALS: BMI 44.0
[2021-05-27 11:21] LABS: Add Urine Microscopic? YES; Bacteria Urine 1+ /hpf; Bilirubin Urine Neg (Negative); Blood Urine Neg (Negative); Glucose Urine UA Norm (Normal); Ketones Urine Negative (Negative); Leukocyte Esterase Urine Negative (Negative); Mucus Urine 1+ /hpf; Nitrate Urine Negative (Negative); Protein Urine Neg (Negative); RBC Urine 0-4 /hpf (0-2); Squamous Epithelial Cell Urine 15-25 /hpf (0-5); Urine Appearance Hazy (CLEAR); Urine Color Yellow (Yellow); Urobilinogen Urine Norm (Negative); WBC Urine 0-4 /hpf (0-5); pH Urine 5 (5-7)
[2021-05-27 11:34] LABS: Basophils # 0.1 10^3/uL (0.0-0.1); Basophils % 0.7 %; Eosinophils # 0.5 10^3/uL (0.0-0.8); Eosinophils % 3.9 %; Hematocrit 37.5 % (37.0-47.0); Hemoglobin 12.6 g/dL (11.5-15.3); Lymphocytes # 3.6 10^3/uL (0.8-4.8); Lymphocytes % 28.8 %; Mean Corpuscular HGB Conc 33.6 g/dL (30.0-36.0); Mean Corpuscular Hemoglobin 29.8 pg (28.0-34.0); Mean Corpuscular Volume 88.7 fl (81-99); Mean Platelet Volume 9.9 fL (7.4-10.4); Monocytes # 0.8 10^3/uL (0.2-0.9); Neutrophils # 7.57 10^3/uL (1.8-7.7); Nucleated Red Blood Cells % 0 %; Platelet Count 304 10^3/cmm (130-400); Red Blood Count 4.23 10^6/uL (4.1-5.3); Red Cell Distribution Width 19.1 % (12.1-15.1); White Blood Count 12.6 10^3/uL (4.0-10.0)
[2021-05-27 12:07] LABS: Alanine Aminotransferase 24 U/L (0-33); Albumin Level 4.1 g/dL (3.5-5.2); Alkaline Phosphatase 96 IU/L (35-105); Anion Gap 12.2 (5-19); Aspartate Amino Transferase 19 U/L (0-32); Blood Urea Nitrogen 7 mg/dL (6-20); Carbon Dioxide 27 mmol/L (22-29); Chloride 106 mmol/L (98-107); Globulin 3.1 g/dL (1.3-4.6); Glomerular Filtration Rate 137.4 mL/min (90-130); Glucose 74 mg/dL (65-115); Osmolality Calculated 289 mOsm/kg (285-295); Potassium 4.2 mmol/L (3.5-5.1); Sodium 141 mmol/L (136-145); Total Bilirubin 0.7 mg/dL (0.15-1.2); Total Protein 7.2 g/dL (6.6-8.7)
[2021-05-29] VITALS (16 sets, daily range): BP systolic 106–144; BP diastolic 69–98; PULSE 73–96; RESP 16–29; TEMP 36.2–37; O2SAT 10–100
--- NOTE | 2021-05-29 09:25 | W.PM.OPSUD ---
Surgery/Procedure H&P Update DATE OF PROCEDURE: May 29, 2021 DATE H&P PERFORMED: 05/27/21 H&P UPDATE INFORMATION: I have reviewed H&P completed within last 30 days, I have examined patient prior to procedure and No changes to prior documentation PREOP DIAGNOSIS: Abnormal uterine bleeding, pelvic pain, uterine fibroid PLANNED PROCEDURE: Operation Date: 05/29/21 10:30 Proposed Procedures p Total Vaginal Hysterectomy 93222 N93.9 D25.1(Not Applicable) - Jericho Goff MD
--- NOTE | 2021-05-29 09:45 | P.ANESASSM_ITS ---
Pre-Anesthetic Assessment Pre-Anesthetic Assessment: Height/Weight: Height 1.55 m Weight 105.687 kg Temp Pulse Resp BP Pulse Ox 98.6 F 96 16 144/98 95 05/29/21 09:22 05/29/21 09:22 05/29/21 09:22 05/29/21 09:22 05/29/21 09:22 Preop Diagnosis: Abnormal uterine bleeding, pelvic pain, uterine fibroid Proposed Procedure: Operation Date: 05/29/21 10:30 Proposed Procedures p Total Vaginal Hysterectomy 04922 N93.9 D25.1(Not Applicable) - Jericho Goff MD Was Beta Laura taken within 24 hours: N/A Was Clonidine taken within 24 hours: N/A Last intake: Intake Last Liquid Date 05/28/21 Last Liquid Time 22:00 Last Solid Date 05/28/21 Last Solid Time 17:30 Social: Social History: Tobacco and No alcohol Packs per day: 1/2 - 1 ppd Exam: Pre-Anes Outpt Exam: alert, oriented x 3 and clear to auscultation bilaterally Airway: MP: 3 Dentition: Chipped and Other Additional comments: poor dentition; small mouth History/ROS: No significant complaints Pulmonary: Pulmonary: Asthma Comments: ALbuterol nebs as needed; did take a neb this am : : None reported Hepatic: Hepatic: None reported GI: GI: None reported Metabolic: Metabolic: Morbid obesity Comments: severe morbid obesity; snores; not sure if she has JENSEN, but I suspect Musc/skel: Musc/skel: None reported Neuropsych: Neuropsych: None reported Anesthetic Plan: ASA status: 3 Anesthesia: General Risk of > 500 ml blood loss (7ml/kg in children): Yes, adequate IV access and fluids planned PFSH Anesthesia PFSH: Medical History Bronchitis Headache Hx of tendinitis R hand No pertinent past medical history neghx: htn,dm,thyroid,dvt/pe PCP: None Surgical History History of cholecystectomy Hx of melanoma excision (~1994) thoracic area Hx of removal of cyst right foot Hx of tonsillectomy Hx of tubal ligation Family History Grandmother Diabetes Maternal and Paternal Hypertension Maternal and Paternal Stroke Maternal Thyroid disease Maternal Father Hypertension Stroke Grandfather Hypertension Maternal and Paternal Stroke Paternal Mother Colon cancer dx age 58 Denies family history of Ovarian cancer Heart disease Breast cancer Uterine cancer Social History Smoking and tobacco status: current every day smoker Female Reproductive History: Date of last menstrual period: 05/27/21 Data Anesthesia CBC & Chem 7: 05/27/21 11:03 05/27/21 11:03 Other Labs: Laboratory Results - last 48 hr 05/27/21 05/27/21 05/27/21 10:58 11:03 11:03 WBC 12.6 H RBC 4.23 Hgb 12.6 Hct 37.5 MCV 88.7 MCH 29.8 MCHC 33.6 RDW 19.1 H Plt Count 304 MPV 9.9 Neut % (Auto) 60.0 Lymph % (Auto) 28.8 [place] % (Auto) 6.0 Eos % (Auto) 3.9 Baso % (Auto) 0.7 Neut # (Auto) 7.57 Lymph # (Auto) 3.6 [place] # (Auto) 0.8 Eos # (Auto) 0.5 Baso # (Auto) 0.1 Nucleated RBC % (auto) 0 Nucleated RBCs # 0.0 Sodium 141 Potassium 4.2 Chloride 106 Carbon Dioxide 27 Anion Gap 12.2 BUN 7 Creatinine 0.5 GFR Calculation 137.4 H Glucose 74 Calculated Osmolality 289 Calcium 9.0 Total Bilirubin 0.7 AST 19 ALT 24 Alkaline Phosphatase 96 Total Protein 7.2 Albumin 4.1 Globulin 3.1 Urine Color Yellow Urine Appearance Hazy A Urine pH 5 Ur Specific Allgood 1.020 Urine Protein Neg Urine Glucose (UA) Norm Urine Ketones Negative Urine Blood Neg Urine Nitrate Negative Urine Bilirubin Neg Urine Urobilinogen Norm Ur Leukocyte Esterase Negative Urine RBC 0-4 H Urine WBC 0-4 H Ur Squamous Epith Cells 15-25 H Amorphous Sediment Not Reportable Urine Bacteria 1+ H Urine Mucus 1+ Blood Type Rho(D) Type Antibody Screen 05/27/21 11:03 WBC RBC Hgb Hct MCV MCH MCHC RDW Plt Count MPV Neut % (Auto) Lymph % (Auto) [place] % (Auto) Eos % (Auto) Baso % (Auto) Neut # (Auto) Lymph # (Auto) [place] # (Auto) Eos # (Auto) Baso # (Auto) Nucleated RBC % (auto) Nucleated RBCs # Sodium Potassium Chloride Carbon Dioxide Anion Gap BUN Creatinine GFR Calculation Glucose Calculated Osmolality Calcium Total Bilirubin AST ALT Alkaline Phosphatase Total Protein Albumin Globulin Urine Color Urine Appearance Urine pH Ur Specific [place] Urine Protein Urine Glucose (UA) Urine Ketones Urine Blood Urine Nitrate Urine Bilirubin Urine Urobilinogen Ur Leukocyte Esterase Urine RBC Urine WBC Ur Squamous Epith Cells Amorphous Sediment Urine Bacteria Urine Mucus Blood Type A Positive Rho(D) Type Positive Antibody Screen Negative Cardiac Studies: No Data to Display
[2021-05-29] MEDS: sodium chloride 0.9% 500 ML IV (09:48)
[2021-05-29] MEDS: scopolamine 1.5 Patch 1 PATCH TRANSDERMA (09:51)
[2021-05-29] MEDS: ceFAZolin 3,000 MG in sodium chloride 0.9% (100 ml) 100 ML 200 MG IV (10:04)
--- NOTE | 2021-05-29 11:31 | P.OP_ITS ---
Operative Report Date of procedure: May 29, 2021 Pre-op Diagnosis: Abnormal uterine bleeding, pelvic pain, uterine fibroid Post-op diagnosis: same Procedure Done: Total vaginal hysterectomy Specimens removed/disposition: Uterus Pathology: Uterus Surgeon: Jericho Goff MD Anesthesia: General Estimated blood loss (mL): 50 IV fluids (mL): 300 Urine output (mL): 100 Complications: None Condition: stable Disposition: PACU Procedure: After informed consent and risks, benefits, indications and alternatives reviewed with the patient was taken to the operating room. The patient was placed in dorsal lithotomy position prepped, and draped in the usual sterile fashion. The pre-procedure timeout verifying the correct patient, procedure, site and side, could not requirements was performed and acknowledge by the OR team. A Wolf catheter was placed. A Bookwalter vaginal retractor was placed into the vagina in usual manner visualize the cervix. Cervix was grasped with a single tooth tenaculum and circumferentially infiltrated with 2% lidocaine with epinephrine]. Then cervix was circumferentially incised with bovie and the bladder was dissected off the pubovesical cervical fascia anteriorly with a sponge stick and Metzenbaum scissors. The anterior peritoneal reflection was identified and the anterior cul-de-sac was entered sharply with Metzenbaum scissors. The same procedure was performed posteriorly and a posterior colpotomy was made through the posterior cul-de-sac space without difficulty and the posterior blade of the Bookwalter vaginal retractor was advanced posteriorly into the cul-de-sac. At this time, the left and right apache rosacral ligaments were isolated and ligated with 0 Vicryl. The Enseal device was placed over the uterosacral ligaments on either side and was then used in a serial fashion up through the cardinal ligaments bilaterally cross-clamped, cut, and sealed with the Enseal device. Finally, the uterine arteries were cross-clamped, cut, sealed and ligated with the Enseal device. Hemostasis was assured. The broad ligaments were then serially clamped, sealed and cut with the Enseal device on both sides. Excellent hemostasis was visualized. Both cornua were clamped, sealed and cut with the Enseal device. Then the pedicles were then suture ligated with excellent hemostasis. The uterus was excised and submitted for pathologic evaluation. No other abnormalities were noted in the pelvic cavity. The peritoneum was then closed in a pursestring fashion with 0 Vicryl suture. The vaginal cuff angles were closed with [id number] #0 Vicryl suture on both sides and transfixed with the ipsilateral cardinal and uterosacral ligaments. The remainder of the vaginal cuff was closed with #0 Vicryl in a running locked fashion. At this time, instruments were removed from the vagina at hemostasis assured. Wolf catheter was then placed yielding clear germna urine. The patient was taken out of dorsal lithotomy position and awakened from the general anesthesia. The patient tolerated the procedure well and was taken to the PACU recovery room in a stable condition. Sponge, lap, needle and instruments counts were correct x3.
[2021-05-29] MEDS: morphine 4 mg/mL SDV 1 mL 2 MG IVP (12:03)
--- NOTE | 2021-05-29 12:09 | SUR.PHASEI ---
PT AWAKES EASILY TO VOICE, C/O OF PAIN PT GRIMICES BUT THEN RELAXE BACK PT REPOSITIONED TO COMFORT, VSS MONITOR SR,NO ECTOPY IV PATENT ABD SOFT WITH JOSE PAD , BILAT SCDS ON, IV TO RT AC AREA PATENT.DRUMMOND TO DD WITH YELLOW URINE TO TUBING AND BAG APPROX 40ML NOT EMPTIED PT TAKING ICE CHIPS AND PT STATES PAIN IS BETTER, VSS MONITOR SR NO ECTOPY
--- NOTE | 2021-05-29 12:40 | PC.NURSE ---
Patient to OB from PACU. Patient assisted into bed with slide board (2 person). Patient moaning and stated her pain is an 8. She is oriented to room and instructed not to get out of bed without assist. Will need to reeducate due to her falling asleep while talking to her. She requested her mother at bedside.
[2021-05-29] MEDS: ketorolac 30 mg/mL INJ IVP ×2 (13:26→18:01)
[2021-05-29] MEDS: dextrose 5%-lactated ringers 1,000 ML 125 ML IV ×2 (13:27→23:48)
--- NOTE | 2021-05-29 13:42 | PC.NURSE ---
Respiratory on floor at this time. RT was asked to come and assess patient due to her history of asthma and the medications she is ordered. Respiratory at bedside. Patient answered questions appropriately but was very sleepy due to the medication.
--- NOTE | 2021-05-29 13:44 | PC.NURSE ---
Incentive spirometer education IS brought to bedside for education. patient falls asleep easily. education to be given when she wakes up and is able to comprehend and demonstrate understanding.
--- NOTE | 2021-05-29 14:39 | PC.NURSE ---
Pain assessment Pain medication offered at this time. patient declined. She was informed that we would continue to ask and if her pain started to worsen, she would just need to notify the staff. patient verbalized understanding.
--- NOTE | 2021-05-29 15:05 | ANE.PACU2 ---
Inpatient post-anesthesia follow up: Airway intact: Yes Vital signs: Temperature 97.7 F Pulse Rate 74 Respiratory Rate 19 Blood Pressure 114/76 Pulse Oximetry 98 Oxygen Delivery Me thod Room Air Oxygen Flow Rate 3 Fraction of Inspir ed Oxygen Hydration adequate: Yes Nausea and vomiting: No Pain level: 2 Mental status: Baseline
--- NOTE | 2021-05-29 15:15 | PC.NURSE ---
Hoda gave verbal permission to discuss updates on her care with her mother Noelle Ramirez. Her phone number is [phone]
[2021-05-29] MEDS: HYDROcodone-acetaminophen 5-325 mg Tablet PO ×2 (15:42→23:06)
[2021-05-29] MEDS: docusate sodium 100 mg Capsule PO (18:01)
[2021-05-29] MEDS: ipratropium-albuterol 3 mL Neb INHALATION (19:44)
[2021-05-30] MEDS: ketorolac 30 mg/mL INJ IVP (01:22)
[2021-05-30 04:33] VITALS: BP 120/78; PULSE 72; RESP 16; TEMP 36.7
[2021-05-30 05:00] VITALS: BP 115/80; PULSE 78; RESP 16; TEMP 36.8
[2021-05-30] MEDS: HYDROcodone-acetaminophen 5-325 mg Tablet PO (05:45)
[2021-05-30 05:48] LABS: Hematocrit 32.2 % (37.0-47.0); Hemoglobin 10.6 g/dL (11.5-15.3); Mean Corpuscular HGB Conc 32.9 g/dL (30.0-36.0); Mean Corpuscular Hemoglobin 29.7 pg (28.0-34.0); Mean Corpuscular Volume 90.2 fl (81-99); Mean Platelet Volume 10.2 fL (7.4-10.4); Platelet Count 225 10^3/cmm (130-400); Red Blood Count 3.57 10^6/uL (4.1-5.3); Red Cell Distribution Width 19.3 % (12.1-15.1); White Blood Count 9.9 10^3/uL (4.0-10.0)
--- NOTE | 2021-05-30 08:07 | PM.OBGYDC ---
Discharge Providers MAKE UP MAN Date of Admission: 05/29/21 11:42 Date of Discharge: 05/30/21 Attending Provider at Admission: Jericho Goff MD Attending Provider at Discharge: Jericho Goff MD Primary Care Provider: June Heredia MD Reason for Visit Reason for Visit: total vaginal hysterectomy Hospital Course Hospital Course Mrs. Hill 40-year-old female with a history of abnormal uterine bleeding unresponsive to medical management and uterine fibroid was admitted for planned total vaginal hysterectomy. The total vaginal hysterectomy was performed without complications. Overnight observation was uneventful. She is afebrile and hemodynamically stable postoperative day 1. Tolerating diet well. Ambulating without difficulty. Pain well under control. Passing flatus. Adequate urine output. Physical Exam Narrative: EXAM NARRATIVE: GA: Alert and oriented ?3. HEENT: WNL. Heart: Regular rate and rhythm. Lungs: Clear to auscultation bilaterally. Abdomen: Bowel sounds present, nontender. CHILDCARE AIDE: Spotting. Extremities: No edema, no cyanosis, no calves pain. Urinary Catheter Management^: Wolf: Cath Placed During This Visit: yes, but has since been removed by the nurse Reason for Continuing Indwelling Catheter: Perioperative Use in Selected Surgeries Urinary Catheter Date of Insertion: 05/29/21 Urinary Catheter Time of Insertion: 10:34 Date Urinary Catheter Removed: 05/30/21 Time Urinary Catheter Discontinued: 05:20 Discharge Data Data Completed and Pending: Pending at discharge Category Date Time Status Pathology: Surgic al [PTH] Routine Pth 05/29/21 11:50 Received Labs from last 24 hours 05/30/21 05:00 WBC 9.9 RBC 3.57 L Hgb 10.6 L Hct 32.2 L MCV 90.2 MCH 29.7 MCHC 32.9 RDW 19.3 H Plt Count 225 MPV 10.2 Vitals: Last Vital Signs Temp 98.3 F 05/30/21 05:00 Pulse 78 05/30/21 05:00 Resp 16 05/30/21 05:00 BP 115/80 05/30/21 05:00 Pulse Ox 95 05/29/21 19:44 Discharge Plan Discharge Patient Disposition: Home Condition: Stable Prescriptions: New ibuprofen 800 mg tablet 800 mg PO TID PRN (Reason: pain) Qty: 60 RF: 0 hydrocodone-acetaminophen 5-325 mg tablet 1 tab PO Q4H PRN (Reason: pain) Qty: 20 RF: 0 Iron (ferrous sulfate) 325 mg (65 mg iron) tablet 325 mg PO BID Qty: 60 RF: 0 Colace 100 mg capsule 100 mg PO BID Qty: 60 RF: 0 acetaminophen 325 mg capsule 325 mg PO Q4H PRN (Reason: fever or pain) Qty: 60 RF: 0 Continued spironolactone 25 mg tablet 12.5 mg PO DAILY RF: 0 omeprazole 40 mg capsule,delayed release(DR/EC) 40 mg PO DAILY 30 Days Qty: 30 RF: 0 melatonin 10 mg capsule 20 mg PO .hs RF: 0 ipratropium-albuterol 0.5 mg-3 mg(2.5 mg base)/3 mL solution for nebulization 3 ml inhalation BID Qty: 90 RF: 0 albuterol sulfate 2.5 mg /3 mL (0.083 %) solution for nebulization 2.5 mg inhalation Q6H Qty: 150 RF: 0 Proair Digihaler 90 mcg/actuation aero powdr breath act w/sensor 2 inh INHALATION Q4H PRN (Reason: shortness of breath or wheezing) Qty: 1 RF: 0 multivitamin Tablet 1 tab PO DAILY RF: 0 Discharge Orders: Discharge Order (Routine); Ordered 05/30/21 Ordered By: Jericho Goff Referrals: Jericho Goff MD [Physician] - 06/11/21 9:30 am (6 week follow up appt 07/09/21 @ 0930 ) Discharge Diet: Usual diet Discharge Activity: Increase activity as tolerated Patient Instructions: Vaginal Hysterectomy (DC), Vaginal Hysterectomy (GEN), OB Discharge Report, OB Food/Drug Interaction Guide, Opioid Safety Activity Restrictions/Additional Instructions: 1. Please call [facility] on next working day to make your post-operative appointment in 2 weeks. 2. Please stay home until you come back to the clinic on first post-operative check up. 3. Please follow instructions on your medications CAREFULLY. 4. If you have abdominal incision, do not cover it unless dressing is necessary because of drainage. OK to shower, but avoid bath. Leave steri-strips until they fall off. If they are still on one week after surgery, you may remove them. 5. If you had vaginal surgery or vaginal repair, Dr. Albino may instruct you to take SITZ bath. 6. Yellow, blood tinged odorous vaginal discharge is usually normal after hysterectomy or vaginal surgeries. 7. No sexual intercourse, tampons, or douches until you are completely released from the post-operative care. 8. Avoid constipation by eating right and maybe using some Metamucil or Milk of Magnesia. 9. All prescription refills are given during the working hours. Please do no wait till it runs out. Call the clinic at [phone] before your medication runs out. The clinic will get in touch with your doctor to prescribe medications if necessary. 10. Please remain within 40 mile radius from our hospital because emergencies do happen now and then during the post-operative period. 11. If you have stairs at home, take one step at a time slowly and minimize the number of trips. It helps to stay in one floor for the next few days. No lifting except what you can lift by one hand until you are released from the post-operative care. 12. Driving is discouraged until you are well healed. It may be 3-4 weeks before you feel strong enough to drive. You should be able to turn and look through the rear window without pain and you should be able to push the brake pedal very hard without pain before you drive. No fast rules, but SAFETY should be your primary concern. DO NOT drive if you are on sedating medications such as narcotics. 13. Call the clinic (during working hours) to make urgent appointment or go to the Emergency room, if any of the following occurs: i. Vaginal bleeding becomes heavy, more than a period. ii. Incision becomes red and sore, or drains pus. iii. Your temperature is over 100.4 or you have chill. iv. IV site becomes red and swollen (a little ``knot?? is usually OK) v. Persistent nausea and vomiting vi. Persistent constipation or diarrhea vii. Rash or allergic reaction to medications. Discharge Attestations MAKE UP MAN Time Spent in Discharge Care*: greater than 30 min Coding Level of Care Code Acute Shrimping Boat Captain for Maura Casas
[2021-05-30] MEDS: ipratropium-albuterol 3 mL Neb INHALATION (08:17)
[2021-05-30 08:19] VITALS: PULSE 76; RESP 18; O2SAT 97
[2021-05-30] MEDS: spironolactone 25 mg Tablet 12.5 MG PO (10:07)
[2021-05-30] MEDS: docusate sodium 100 mg Capsule PO (10:07)
[2021-05-30] MEDS: ibuprofen 800 mg tablet PO (10:07)
[2021-05-30] MEDS: pantoprazole DR 40 mg Tablet PO (10:07)
[2021-05-30 10:10] VITALS: BP 125/84; PULSE 82; RESP 18; TEMP 36.8; O2SAT 99
--- NOTE | 2021-05-31 15:30 | PC.RESP ---
SMOKING CESSATION INFORMATION SENT TO PATIENT.
== END 2021-05-30 10:20 | disposition home or self-care (01) ==
LOC: OBGYN 11:44
PROVIDERS: Admitting Provider Obstetrics & Gynecology; PCP Family Medicine; Visit Provider Obstetrics & Gynecology
PROC: (CPT 58260; principal; 2021-05-29 10:20)
DX: N93.9 Abnormal uterine and vaginal bleeding, unspecified (principal); R10.2 Pelvic and perineal pain; D25.9 Leiomyoma of uterus, unspecified; F17.210 Nicotine dependence, cigarettes, uncomplicated; E66.01 Morbid (severe) obesity due to excess calories; Z68.41 Body mass index [BMI] 40.0-44.9, adult
CPT/HCPCS: 58260; 36415; 80053; 81001; 85025; 85027; 86850; 86900; 88307; 94640; 96365; G0378; J0330; J0690; J1100; J1885; J2270; J2405; J2704; J3010; J3490; J7040

== ENCOUNTER 2021-06-26 12:59 | Outpatient (CLI) | payer SELFPAY ==
[2021-06-26 12:04] VITALS: BP 122/78; PULSE 107; RESP 20; TEMP 36.3; O2SAT 98; BMI 47.0
[2021-06-26 13:25] VITALS: BP 176/103; PULSE 121; RESP 22; O2SAT 85
[2021-06-26] MEDS: diphenhydrAMINE 50 mg/mL SDV 1mL IVP (13:28)
[2021-06-26 13:30] VITALS: BP 176/103; PULSE 121; RESP 22; O2SAT 85; O2SAT 95
--- NOTE | 2021-06-26 14:10 | PC.NURSE ---
Started infusion at 1322. Patient complained of chest pain at 1324. Infusion stopped. Patient flushed, continued to complain of chest pain. Rapid response called. O2 applied. Laid flat in chair. 1328 Dr Olmstead ordered 50mg Benadryl. Given as ordered via IV. 1330 Ambulated to stretcher on room air. To ER with rapid response team.
== END 2021-06-26 13:00 | disposition home or self-care (01) ==
LOC: OPS 13:02
PROVIDERS: PCP Family Medicine; Visit Provider Emergency Medicine
DX: U07.1 COVID-19 (principal)
CPT/HCPCS: 96365; 96375; J1200

== ENCOUNTER 2021-06-26 13:47 | Emergency (ER) | payer SELFPAY ==
--- NOTE | 2021-06-26 13:50 | XR_ITS ---
WS: [id number] Portable AP upright chest, 06/26/2021 Clinical Data: dyspnea/cough Comparison: Portable chest, 09/24/2019. Findings: No nodules, masses or effusions are seen. The heart is normal. The pulmonary vascularity is not increased. No pneumonia or pneumothorax is seen. There are monitor leads on the chest wall. XR/XR chest 1V portable [id number] Impression: Negative chest.
[2021-06-26 14:00] VITALS: BP 117/69; PULSE 99; RESP 17; O2SAT 100; BMI 47.2
--- NOTE | 2021-06-26 15:08 | W.ED.ALLEREA ---
HPI - Allergic Reaction General: Chief complaint: Allergic Reaction Stated complaint: REACTION COVID INFUSION Time Seen by Provider: 06/26/21 13:50 History of Present Illness: HPI narrative: 40-year-old female presents to the emergency room from infusion clinic. A rapid response was called shortly after starting monoclonal antibody infusion for Covid patient began complaining of severe pain in her lower extremities. I responded to the rapid response she was hyperventilating this time but not having any rash. She was given Benadryl and brought to the emergency room. At that time she was emergency room she is not requiring any supplemental oxygen he is not developed any rash or hives. Her breathing has improved. MD complaint: allergic reaction Onset (ago): minute(s) Exposure: medication Associated symptoms: Deny abdominal pain, difficulty breathing, dysphagia, dizziness, facial swelling, hoarseness, itching, lip swelling, nausea, rash, tongue swelling or vomiting Severity: mild Treatment prior to arrival: benadryl Previous Allergic Reaction History: other (Antibiotics) Review of Systems Const: Denies: fever(s), chills, body aches, change in appetite, fatigue or malaise ENMT: Denies: hoarseness Card: Denies: chest pain, edema, dyspnea on exertion or orthopnea Resp: Denies: dyspnea, productive cough or non-productive cough GI: Denies: abdominal pain, nausea, vomiting or dysphagia : Denies: flank pain, difficulty voiding, dysuria, urinary frequency or urinary urgency Skin/Breast: Denies: rash or pruritus Neuro: Denies: dizziness All/Imm: Denies: tongue swelling or facial swelling PFSH ED PFSH: Medical History Aftercare following surgery of the genitourinary system Bronchitis Headache Hx of tendinitis R hand No pertinent past medical history neghx: htn,dm,thyroid,dvt/pe PCP: None Surgical History H/O: hysterectomy 05/29/2021- TVH performed by Dr. Goff at [facility] History of cholecystectomy Hx of melanoma excision (~1994) thoracic area Hx of removal of cyst right foot Hx of tonsillectomy Hx of tubal ligation Family History Grandmother Diabetes Maternal and Paternal Hypertension Maternal and Paternal Stroke Maternal Thyroid disease Maternal Father Hypertension Stroke Grandfather Hypertension Maternal and Paternal Stroke Paternal Mother Colon cancer dx age 58 Denies family history of Ovarian cancer Heart disease Breast cancer Uterine cancer Female Reproductive History: Date of last menstrual period: 05/27/21 Physical Exam Const: COMMON NORMALS: no acute distress GENERAL APPEARANCE: cooperative and comfortable ORIENTATION/CONSCIOUSNESS: Yes awake, Yes oriented to person, Yes oriented to place and Yes oriented to time HENMT: COMMON NORMALS: normocephalic, atraumatic, hearing grossly normal bilaterally, external ears normal, EAC's normal, TM's normal bilaterally, Normal nasal mucous membranes and turbinates present, moist oral mucous membranes and oropharynx normal HEAD & SCALP: normocephalic and atraumatic NOSE: Normal nasal mucous membranes and turbinates present EXTERNAL EAR: Yes external ears normal EXTERNAL AUDITORY CANAL: EAC's normal TYMPANIC MEMBRANE: TM's normal bilaterally Eye: COMMON NORMALS: Equal, round and reactive pupils present, EOMs intact bilaterally, conjunctivae normal and no scleral icterus CONJUNCTIVA: Yes conjunctivae normal PUPIL: Yes Equal, round and reactive pupils present Neck/C-Spine: COMMON NORMALS: full ROM, no lymphadenopathy, supple and no JVD Lymph: LYMPHATIC: no lymphadenopathy noted and no lymphedema noted Resp: COMMON NORMALS: normal respiratory effort, No retractions, No use of accessory muscles and clear to auscultation bilaterally AUSCULTATION: clear to auscultation bilaterally Cardio: COMMON NORMALS: no JVD, regular rate, regular rhythm and No murmurs present (Cardio) RATE: regular rate RHYTHM: regular rhythm GI: COMMON NORMALS: Soft to palpation and No hepatosplenomegaly present AUSCULTATION: Yes normoactive bowel sounds PALPATION: Yes Soft to palpation, No Tenderness to palpation present (GI), No Guarding due to palpation present (GI) and Yes No hepatosplenomegaly present Extremity: COMMON NORMALS: normal to inspection, capillary refill normal, no clubbing, cyanosis or edema, no calf tenderness and no pedal edema Neuro: SENSORIUM/ORIENTATION: Yes oriented to person, Yes oriented to place and Yes oriented to time Skin: COMMON NORMALS: no rashes or lesions noted GENERAL SKIN EXAM: no rashes or lesions noted Course Vital Signs: Vital signs: Vital Signs Pulse Rate 101 H 06/26/21 15:11 Respiratory Rate 17 06/26/21 15:11 Blood Pressure 120/82 06/26/21 15:11 Pulse Oximetry 97 06/26/21 15:11 MDM - Allergic Reaction MDM Narrative: Medical decision making narrative: Patient monitored for now in the emergency room. She had no further symptoms never developed any rash nor any breathing problems. I do not suspect this was a true anaphylactic reaction or even an allergic reaction. There is no evidence of such. Passage of time seem to be more therapeutic than the Benadryl. Recommend not proceeding with monoclonal antibody infusion at this point monitor oxygen saturations at home. Follow-up with her primary care return if she has any worsening problems with breathing. Discharge Plan Discharge Patient Disposition: Home Clinical Impression: COVID-19, Adverse reaction to drug Condition: Stable Prescriptions: No Action spironolactone 25 mg tablet 12.5 mg PO DAILY RF: 0 omeprazole 40 mg capsule,delayed release(DR/EC) 40 mg PO DAILY 30 Days Qty: 30 RF: 0 melatonin 10 mg capsule 20 mg PO .hs RF: 0 ipratropium-albuterol 0.5 mg-3 mg(2.5 mg base)/3 mL solution for nebulization 3 ml inhalation BID Qty: 90 RF: 0 azithromycin 250 mg tablet See Rx Instructions PO .COMPLEX Qty: 6 RF: 0 dexamethasone 6 mg tablet 6 mg PO DAILY Qty: 7 RF: 0 albuterol sulfate 90 mcg/actuation HFA aerosol inhaler 2 puff inhalation Q6H PRN (Reason: shortness of breath or wheezing) Qty: 8.5 RF: 1 vmhzfninewmyevb-jwmvxnxjn-HW [Bromfed DM] 2-30-10 mg/5 mL syrup 5 ml PO Q6H PRN (Reason: cold symptoms) Qty: 480 RF: 0 albuterol sulfate 2.5 mg /3 mL (0.083 %) solution for nebulization 2.5 mg inhalation Q6H Qty: 150 RF: 1 ondansetron 4 mg tablet,disintegrating 4 mg PO Q6H PRN (Reason: nausea and vomiting) Qty: 12 RF: 0 Proair Digihaler 90 mcg/actuation aero powdr breath act w/sensor 2 inh INHALATION Q4H PRN (Reason: shortness of breath or wheezing) Qty: 1 RF: 0 multivitamin Tablet 1 tab PO DAILY RF: 0 ibuprofen 800 mg tablet 800 mg PO TID PRN (Reason: pain) Qty: 60 RF: 0 Discharge Orders: Discharge ED (Routine); Ordered 06/26/21 Ordered By: Teja Byers Referrals: June Heredia MD [Primary Care Provider] - Discharge Diet: Usual diet Discharge Activity: Increase activity as tolerated Patient Instructions: Opioid Safety Coding Level of Care Code 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
[2021-06-26 15:11] VITALS: BP 120/82; PULSE 101; RESP 17; O2SAT 97
== END 2021-06-26 15:05 | disposition home or self-care (01) ==
PROVIDERS: Emergency Provider Family Medicine; PCP Family Medicine
DX: T80.62XA Other serum reaction due to vaccination, initial encounter (principal); Y84.8 Other medical procedures as the cause of abnormal reaction of the patient, or of later complication, without mention of misadventure at the time of the procedure
CPT/HCPCS: 71045; 99282

== ENCOUNTER → 2021-12-10 16:35 | Outpatient (BNVA) | payer BC, SELFPAY | PROVIDERS: PCP Family Medicine; Visit Provider Emergency Medicine | DX: R10.9 Unspecified abdominal pain (principal) | CPT/HCPCS: 81000 ==

== ENCOUNTER 2022-02-21 08:20 | Emergency (ER) | payer BC, SELFPAY ==
[2022-02-21] VITALS (7 sets, daily range): BP systolic 106–173; BP diastolic 76–116; PULSE 78–115; RESP 18–22; TEMP 36.6; O2SAT 95–99; BMI 31.3
--- NOTE | 2022-02-21 08:38 | XR_ITS ---
WS: [id number] Portable AP upright chest, 02/21/2022 Clinical Data: chest pain Comparison: Portable chest, 06/26/2021. Findings: No nodules, masses or effusions are seen. The heart is normal. The pulmonary vascularity is not increased. No pneumonia or pneumothorax is seen. Monitor leads are on the chest wall. XR/XR chest 1V portable [id number] Impression: Negative chest.
--- NOTE | 2022-02-21 08:41 | ECG_ITS ---
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 Measurements Intervals [place] Rate: 97 P: 129 WA: 118 QRS: 142 QRSD: 103 T: 152 QT: 361 QTc: 459 Interpretive Statements SINUS RHYTHM WITH SHORT WA INTERVAL INCOMPLETE RIGHT BUNDLE BRANCH BLOCK [90+ ms QRS DURATION, TERMINAL R IN V1/V2, 40+ ms S IN I/aVL/V4/V5/V6] LEFT POSTERIOR FASCICULAR BLOCK [QRS AXIS > 109, INFERIOR Q] No previous ECG available for comparison Electronically Signed On 02-21-2022 18:16:59 CDT by Abel Odonnell M.D. [id number] f
[2022-02-21 08:58] LABS: Basophils # 0.1 10^3/uL (0.0-0.1); Basophils % 0.7 %; Eosinophils # 0.3 10^3/uL (0.0-0.8); Eosinophils % 2.8 %; Hematocrit 34.4 % (37.0-47.0); Hemoglobin 11.7 g/dL (11.5-15.3); Lymphocytes % 27.6 %; Mean Corpuscular Hemoglobin 30.6 pg (28.0-34.0); Mean Corpuscular Volume 90.1 fl (81-99); Mean Platelet Volume 10.1 fL (7.4-10.4); Monocytes # 0.6 10^3/uL (0.2-0.9); Monocytes % 5.3 %; Neutrophils % 63.1 %; Nucleated Red Blood Cells % 0 %; Platelet Count 256 10^3/cmm (130-400); Red Blood Count 3.82 10^6/uL (4.1-5.3); Red Cell Distribution Width 18.3 % (12.1-15.1); White Blood Count 10.8 10^3/uL (4.0-10.0)
--- NOTE | 2022-02-21 09:00 | PC.NURSE ---
PT PLACED ON CONTINUOUS NIBP, SPO2, AND CM
--- NOTE | 2022-02-21 09:04 | W.ED.CHESTPA ---
HPI - Chest Pain General: Chief Complaint: Chest Pain Stated Complaint: chest pain, High bloodpressure Time Seen by Provider: 02/21/22 08:26 Source: patient Mode of arrival: ambulatory Limitations: no limitations History of Present Illness: 41-year-old morbidly obese female presents emergency room with complaints of chest pain and elevated blood pressure for the last 1 to 2 days. 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 She had monitored her blood pressure there had several readings in the upper 140s and 150s with diastolics over 100. She not currently on any medications for blood pressure she does have a history of smoking. No known history of coronary artery disease. MD complaint: chest pain Onset (ago): day(s) Timing of current episode: episodic Prior episodes: Yes Onset: during exertion Pain location: left chest Pain radiation: none Severity: moderate Quality: tightness, aching and heaviness Relieving factors: nothing Exacerbating factors: nothing Associated symptoms: Reports dyspnea and sense of impending doom; Deny abdominal pain, diaphoresis, fever(s), leg edema, nausea, palpitations or syncope Treatment prior to arrival: none Review of Systems Const: Denies: fever(s), chills, fatigue, malaise or diaphoresis ENMT: Denies: throat pain, ear or mastoid pain, nasal discharge or nasal congestion Card: Reports: chest pain; Denies: palpitations or syncope Resp: Reports: dyspnea and productive cough GI: Denies: abdominal pain or nausea : Denies: flank pain, difficulty voiding, dysuria, urinary frequency or urinary urgency Skin/Breast: Denies: rash or pruritus PFS ED PFSH: Medical History Aftercare following surgery of the genitourinary system Bronchitis Headache Hx of tendinitis R hand No pertinent past medical history neghx: htn,dm,thyroid,dvt/pe PCP: None Surgical History H/O: hysterectomy 05/29/2021- TVH performed by Dr. Goff at [facility] History of cholecystectomy Hx of melanoma excision (~1994) thoracic area Hx of removal of cyst right foot Hx of tonsillectomy Hx of tubal ligation Family History Grandmother Diabetes Maternal and Paternal Hypertension Maternal and Paternal Stroke Maternal Thyroid disease Maternal Father Hypertension Stroke Grandfather Hypertension Maternal and Paternal Stroke Paternal Mother Colon cancer dx age 58 Denies family history of Ovarian cancer Heart disease Breast cancer Uterine cancer Social History Smoking and tobacco status: current every day smoker Female Reproductive History: Date of last menstrual period: 05/27/21 Spontaneous abortions: No Physical Exam Const: GENERAL APPEARANCE: cooperative and comfortable ORIENTATION/CONSCIOUSNESS: Yes awake, Yes oriented to person, Yes oriented to place and Yes oriented to time HENMT: COMMON NORMALS: normocephalic, atraumatic and hearing grossly normal bilaterally HEAD & SCALP: normocephalic and atraumatic Neck/C-Spine: COMMON NORMALS: no JVD Resp: COMMON NORMALS: normal respiratory effort, No retractions, No use of accessory muscles and clear to auscultation bilaterally AUSCULTATION: clear to auscultation bilaterally Cardio: COMMON NORMALS: no JVD, regular rate, regular rhythm and No murmurs present (Cardio) RATE: regular rate RHYTHM: regular rhythm GI: COMMON NORMALS: Soft to palpation and No hepatosplenomegaly present AUSCULTATION: Yes normoactive bowel sounds PALPATION: Yes Soft to palpation, No Tenderness to palpation present (GI), No Guarding due to palpation present (GI) and Yes No hepatosplenomegaly present Extremity: COMMON NORMALS: normal to inspection, capillary refill normal, no clubbing, cyanosis or edema, no calf tenderness and no pedal edema Neuro: SENSORIUM/ORIENTATION: Yes oriented to person, Yes oriented to place and Yes oriented to time Skin: COMMON NORMALS: no rashes or lesions noted GENERAL SKIN EXAM: no rashes or lesions noted Course Vital Signs: Vital signs: Vital Signs Temperature 98 F 02/21/22 08:35 Pulse Rate 81 02/21/22 12:23 Respiratory Rate 18 02/21/22 12:23 Blood Pressure 118/85 02/21/22 12:23 Pulse Oximetry 95 02/21/22 12:23 MDM - Chest Pain Medical Decision Making EKG and troponins unremarkable discharge patient home. Have her start low-dose amlodipine also add aspirin daily. Recheck with your primary care doctor within 1 week to reassess blood pressure. Medical Records I reviewed the patient's medical records. Lab Data I reviewed the patient's lab results. : 02/21/22 08:44 02/21/22 08:44 Radiology Impressions Chest X-Ray 02/21/22 08:38 Impression: Negative chest. Laboratory Results WBC 10.8 10^3/uL (4.0-10.0) H 02/21/22 08:44 RBC 3.82 10^6/uL (4.1-5.3) L 02/21/22 08:44 Hgb 11.7 g/dL (11.5-15.3) 02/21/22 08:44 Hct 34.4 % (37.0-47.0) L 02/21/22 08:44 MCV 90.1 fl (81-99) 02/21/22 08:44 MCH 30.6 pg (28.0-34.0) 02/21/22 08:44 MCHC 34.0 g/dL (30.0-36.0) 02/21/22 08:44 RDW 18.3 % (12.1-15.1) H 02/21/22 08:44 Plt Count 256 10^3/cmm (130-400) 02/21/22 08:44 MPV 10.1 fL (7.4-10.4) 02/21/22 08:44 Neut % (Auto) 63.1 % 02/21/22 08:44 Lymph % (Auto) 27.6 % 02/21/22 08:44 Wright % (Auto) 5.3 % 02/21/22 08:44 Eos % (Auto) 2.8 % 02/21/22 08:44 Baso % (Auto) 0.7 % 02/21/22 08:44 Neut # (Auto) 6.80 10^3/uL (1.8-7.7) 02/21/22 08:44 Lymph # (Auto) 3.0 10^3/uL (0.8-4.8) 02/21/22 08:44 Wright # (Auto) 0.6 10^3/uL (0.2-0.9) 02/21/22 08:44 Eos # (Auto) 0.3 10^3/uL (0.0-0.8) 02/21/22 08:44 Baso # (Auto) 0.1 10^3/uL (0.0-0.1) 02/21/22 08:44 Nucleated RBC % (auto) 0 % 02/21/22 08:44 Nucleated RBCs # 0.0 /100WBC 02/21/22 08:44 Sodium 137 mmol/L (136-145) 02/21/22 08:44 Potassium 3.7 mmol/L (3.5-5.1) 02/21/22 08:44 Chloride 101 mmol/L (98-107) 02/21/22 08:44 Carbon Dioxide 25 mmol/L (22-29) 02/21/22 08:44 Anion Gap 14.7 (5-19) 02/21/22 08:44 BUN 10 mg/dL (6-20) 02/21/22 08:44 Creatinine 0.6 mg/dL (0.5-0.9) 02/21/22 08:44 GFR Calculation 110.7 mL/min (90-130) 02/21/22 08:44 Glucose 138 mg/dL (65-115) H 02/21/22 08:44 Calculated Osmolality 285 mOsm/kg (285-295) 02/21/22 08:44 Calcium 9.0 mg/dL (8.5-10.5) 02/21/22 08:44 Total Bilirubin 0.7 mg/dL (0.15-1.2) 02/21/22 08:44 AST 21 U/L (0-32) 02/21/22 08:44 ALT 24 U/L (0-33) 02/21/22 08:44 Alkaline Phosphatase 91 IU/L (35-105) 02/21/22 08:44 Creatine Kinase 82 U/L (26-192) 02/21/22 08:44 Troponin T Baseline 6 ng/L (0-10) 02/21/22 08:44 Troponin T 120 Minute 6.00 ng/L (0-10) 02/21/22 10:50 Delta Troponin T 0 ABS# (0-10) 02/21/22 10:50 Total Protein 7.1 g/dL (6.6-8.7) 02/21/22 08:44 Albumin 4.2 g/dL (3.5-5.2) 02/21/22 08:44 Globulin 2.9 g/dL (1.3-4.6) 02/21/22 08:44 Discharge Plan Discharge Patient Disposition: Home Clinical Impression: Atypical chest pain, Hypertension Condition: Stable Prescriptions: New aspirin 81 mg tablet,delayed release (DR/EC) 81 mg PO DAILY Qty: 30 0RF amlodipine 2.5 mg tablet 2.5 mg PO DAILY Qty: 30 0RF No Action albuterol sulfate 2.5 mg /3 mL (0.083 %) solution for nebulization 2.5 mg inhalation Q6H PRN (Reason: Shortness Of Breath) 0RF ipratropium-albuterol 0.5 mg-3 mg(2.5 mg base)/3 mL solution for nebulization 3 ml inhalation BID Qty: 90 0RF albuterol sulfate 90 mcg/actuation HFA aerosol inhaler 2 puff inhalation Q6H PRN (Reason: shortness of breath or wheezing) Qty: 8.5 1RF multivitamin Tablet 1 tab PO DAILY 0RF cranberry 400 mg Capsule 800 mg PO DAILY 0RF Rx Instructions: administer with a meal Discharge Orders: Discharge ED (Routine); Ordered 02/21/22 Ordered By: Teja Byers Referrals: June Heredia MD [Primary Care Provider] - Discharge Diet: Usual diet Discharge Activity: Resume usual activity Patient Instructions: Opioid Safety Activity Restrictions/Additional Instructions: 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 Recommend that he start taking 1 baby aspirin daily also recommend you start on amlodipine 5 mg daily. Should recheck your blood pressure with your primary care doctor within the next week. Stand Alone Forms: Work/School Release Coding Level of Care Code ED Rn Surgical Pcu for Danielleg Fwd Exam Comprehensive
[2022-02-21] MEDS: aspirin 81 mg Chew Tablet 324 MG PO (09:10)
[2022-02-21 09:22] LABS: Alanine Aminotransferase 24 U/L (0-33); Albumin Level 4.2 g/dL (3.5-5.2); Alkaline Phosphatase 91 IU/L (35-105); Anion Gap 14.7 (5-19); Aspartate Amino Transferase 21 U/L (0-32); Blood Urea Nitrogen 10 mg/dL (6-20); Carbon Dioxide 25 mmol/L (22-29); Chloride 101 mmol/L (98-107); Creatine Phosphokinase 82 U/L (26-192); Globulin 2.9 g/dL (1.3-4.6); Glomerular Filtration Rate 110.7 mL/min (90-130); Glucose 138 mg/dL (65-115); Osmolality Calculated 285 mOsm/kg (285-295); Potassium 3.7 mmol/L (3.5-5.1); Sodium 137 mmol/L (136-145); Total Bilirubin 0.7 mg/dL (0.15-1.2); Total Protein 7.1 g/dL (6.6-8.7)
[2022-02-21 09:23] LABS: Troponin(5th) Baseline 6 ng/L (0-10)
--- NOTE | 2022-02-21 10:41 | ECG_ITS ---
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 Measurements Intervals [place] Rate: 76 P: 19 DE: 137 QRS: 44 QRSD: 113 T: 23 QT: 416 QTc: 469 Interpretive Statements SINUS RHYTHM LOW QRS VOLTAGE IN PRECORDIAL LEADS [QRS DEFLECTION < 1.0 mV IN CHEST LEADS] INCOMPLETE RIGHT BUNDLE BRANCH BLOCK [90+ ms QRS DURATION, TERMINAL R IN V1/V2, 40+ ms S IN I/aVL/V4/V5/V6] Compared to ECG 02/21/2022 08:31:34 Low QRS voltage now present Short DE interval no longer present Left posterior fascicular block no longer present Electronically Signed On 02-21-2022 18:21:46 CDT by Abel Odonnell M.D. [email or web address]/[id number] f
[2022-02-21 11:17] LABS: Troponin 5 2HR Delta 0 ABS# (0-10)
--- NOTE | 2022-02-24 14:38 | DCPLANNER ---
Addendum entered by Gina Del Angel 08/26/22 12:41: Patient had a stress test scheduled - patient did attend appointment Original Note: manager implementation had message to schedule an outpatient order for a stress test. manager implementation faxed signed order to centralized scheduling, who will call patient with appointment information.
== END 2022-02-21 12:25 | disposition home or self-care (01) ==
PROVIDERS: Emergency Provider Family Medicine; PCP Family Medicine
DX: R07.89 Other chest pain (principal); I10 Essential (primary) hypertension
CPT/HCPCS: 36415; 71045; 80053; 82550; 84484; 85025; 93005; 99285

== ENCOUNTER 2022-04-16 20:00 | Outpatient (CLI) | payer BC, SELFPAY | END 2022-04-16 20:01 | disposition home or self-care (01) | LOC: SLEEP 04-17 09:25 | PROVIDERS: PCP Family Medicine; Visit Provider Family Medicine | DX: G47.10 Hypersomnia, unspecified (principal); R06.83 Snoring | CPT/HCPCS: 95810 ==

== ENCOUNTER 2022-04-24 14:28 | Outpatient (CLI) | payer BC, SELFPAY ==
--- NOTE | 2022-04-24 14:31 | MM_ITS ---
WS: [id number] BILATERAL 3D TOMOSYNTHESIS DIGITAL SCREENING MAMMOGRAPHY WITH CAD CLINICAL INFORMATION: Z12.39 - Encounter for other screening for malignant neop... HISTORY: Screening mammogram. No current complaints. COMPARISON: None. TECHNIQUE: Bilateral CC and MLO views. FINDINGS: Scattered fibroglandular densities bilaterally. Incidental punctate calcifications LEFT breast. Incre ased parenchymal density along the axilla in the area of reported recently ruptured sebaceous cyst wi th associated marker. No suspicious focal mass, asymmetry, calcifications, or architectural distortio n. No evidence of malignancy. MM/[place] [id number] IMPRESSION: BI-RADS: 2-Benign FOLLOW UP: 1 Year Follow-up Recommend return to annual screening mammography.
== END 2022-04-24 14:29 | disposition home or self-care (01) ==
LOC: RAD 14:29
PROVIDERS: PCP Family Medicine; Visit Provider Family Medicine
DX: Z12.31 Encounter for screening mammogram for malignant neoplasm of breast (principal)
CPT/HCPCS: 77063; 77067

== ENCOUNTER 2022-05-29 08:56 | Emergency (ER) | payer BC, SELFPAY ==
[2022-05-29 09:01] VITALS: BP 140/93; PULSE 93; RESP 21; TEMP 36.6; O2SAT 97; BMI 44.9
--- NOTE | 2022-05-29 09:17 | ECG_ITS ---
[facility] Test Date: 2022-05-29 Pat Name: Hoda Kingston Department: Room: Gender: Female Vb Developer: : 1980 Requested By: Teja Palomo Order Number: [id number] Rene MD: Linda Barroso M.D. Measurements Intervals [place] Rate: 84 P: 5 FL: 127 QRS: 54 QRSD: 92 T: 45 QT: 370 QTc: 439 Interpretive Statements SINUS RHYTHM LOW QRS VOLTAGE IN PRECORDIAL LEADS [QRS DEFLECTION < 1.0 mV IN CHEST LEADS] POSSIBLE RIGHT VENTRICULAR CONDUCTION DELAY [RSR (QR) IN V1/V2] Compared to ECG 02/21/2022 11:49:51 Incomplete right bundle-branch block no longer present Electronically Signed On 05-29-2022 12:50:49 CDT by Linda Barroso M.D. [email or web address] ([email or web address] [email or web address] Holdingsmer[id number]
[2022-05-29 10:12] LABS: Basophils # 0.1 10^3/uL (0.0-0.1); Basophils % 0.7 %; Eosinophils # 0.3 10^3/uL (0.0-0.8); Eosinophils % 2.7 %; Hematocrit 36.2 % (37.0-47.0); Hemoglobin 12.4 g/dL (11.5-15.3); Lymphocytes # 3.1 10^3/uL (0.8-4.8); Lymphocytes % 28.3 %; Mean Corpuscular HGB Conc 34.3 g/dL (30.0-36.0); Mean Corpuscular Volume 90.5 fl (81-99); Monocytes # 0.7 10^3/uL (0.2-0.9); Monocytes % 6.8 %; Neutrophils # 6.65 10^3/uL (1.8-7.7); Neutrophils % 61.1 %; Nucleated Red Blood Cells % 0 %; Platelet Count 228 10^3/cmm (130-400); Red Cell Distribution Width 18.1 % (12.1-15.1); White Blood Count 10.9 10^3/uL (4.0-10.0)
[2022-05-29 10:38] LABS: Anion Gap 11.9 (5-19); Blood Urea Nitrogen 8 mg/dL (6-20); Calcium 9.7 mg/dL (8.5-10.5); Carbon Dioxide 28 mmol/L (22-29); Chloride 100 mmol/L (98-107); Glomerular Filtration Rate 92.7 mL/min (90-130); Glucose 101 mg/dL (65-115); Osmolality Calculated 280 mOsm/kg (285-295); Potassium 3.9 mmol/L (3.5-5.1); Sodium 136 mmol/L (136-145)
--- NOTE | 2022-05-29 11:30 | W.ED.DIZZY ---
HPI - Dizziness General: Chief Complaint: Dizziness Stated Complaint: Dizzy, lightheaded, just took bp meds Time Seen by Provider: 05/29/22 09:35 History of Present Illness: HPI Narrative: Patient is a 41-year-old female comes to the ED after an episode of lightheadedness and dizziness. Patient takes amlodipine for blood pressure and was just started on metoprolol and took her first dose this morning. Afterward she felt lightheaded and a little dizzy. Denies any chest pain, shortness of breath. Associated symptoms: Denies chest pain, chills, headache(s), nausea, nasal congestion, palpitations or vomiting Associated neuro symptoms: Deny numbness in extremities Review of Systems Const: Denies: fever(s), chills or fatigue Eyes: Denies: change in vision or eye discomfort ENMT: Denies: throat pain, odynophagia, nasal discharge or nasal congestion Card: Reports: lightheadedness; Denies: chest pain, palpitations, edema, swelling of feet/ankles, dyspnea on exertion or orthopnea Resp: Denies: dyspnea, productive cough or non-productive cough GI: Denies: abdominal pain, nausea, vomiting, diarrhea, constipation or hematochezia : Denies: flank pain, dysuria or hematuria Musc: Denies: neck pain, back pain or extremity swelling Skin/Breast: Denies: rash or new lesions Neuro: Reports: dizziness; Denies: headache(s), numbness in extremities or weakness in extremities [facility] ED PFSH: Medical History Aftercare following surgery of the genitourinary system Bronchitis Headache Hx of tendinitis R hand No pertinent past medical history neghx: htn,dm,thyroid,dvt/pe PCP: None Surgical History H/O: hysterectomy 05/29/2021- TVH performed by Dr. Goff at [facility] History of cholecystectomy Hx of melanoma excision (~1994) thoracic area Hx of removal of cyst right foot Hx of tonsillectomy Hx of tubal ligation Family History Grandmother Diabetes Maternal and Paternal Hypertension Maternal and Paternal Stroke Maternal Thyroid disease Maternal Father Hypertension Stroke Grandfather Hypertension Maternal and Paternal Stroke Paternal Mother Colon cancer dx age 58 Social History Smoking and tobacco status: current every day smoker (1 PPD 27 year history) Female Reproductive History: Date of last menstrual period: 05/27/21 Spontaneous abortions: No Physical Exam Const: COMMON NORMALS: no acute distress, patient oriented x3 and alert GENERAL APPEARANCE: cooperative HENMT: COMMON NORMALS: normocephalic HEAD & SCALP: normocephalic MOUTH: Normal oral and palatal mucosa present THROAT: posterior oropharynx normal and uvula midline Neck/C-Spine: COMMON NORMALS: supple GENERAL: Yes normal visual inspection Resp: COMMON NORMALS: normal respiratory effort, No retractions, No use of accessory muscles and clear to auscultation bilaterally AUSCULTATION: clear to auscultation bilaterally Cardio: COMMON NORMALS: regular rate, regular rhythm, S1 normal heart sound present, S2 normal heart sound present, No gallops present (Cardio), No clicks present (Cardio), No murmurs present (Cardio) and Peripheral pulses 2+ throughout RATE: regular rate RHYTHM: regular rhythm HEART SOUNDS: S1 normal heart sound present and S2 normal heart sound present PERIPHERAL PULSES: Peripheral pulses 2+ throughout GI: COMMON NORMALS: Normal to inspection, nondistended, normoactive bowel sounds present, Soft to palpation, non-tender and no masses PALPATION: Yes Soft to palpation : COMMON NORMALS: Yes no CVA tenderness BLADDER/KIDNEY EXAM: Yes no CVA tenderness Back/Pelvis: COMMON NORMALS: no CVA tenderness Neuro: COMMON NORMALS: patient oriented x3 SENSORIUM/ORIENTATION: Yes alert GAIT: Yes Normal gait present Skin: GENERAL SKIN EXAM: dry skin Course Vital Signs: Vital signs: Vital Signs Temperature 97.8 F 05/29/22 09:01 Pulse Rate 65 05/29/22 11:52 Respiratory Rate 16 05/29/22 11:52 Blood Pressure 145/78 05/29/22 11:52 Pulse Oximetry 98 05/29/22 11:52 Oxygen Delivery Me thod 05/29/22 09:01 MDM - Dizziness Medical Decision Making Patient is a 41-year-old female comes to the ED after an episode of lightheadedness and dizziness. Patient takes amlodipine for blood pressure and was just started on metoprolol and took her first dose this morning. Afterward she felt lightheaded and a little dizzy. Denies any chest pain, shortness of breath. Vitals are stable. Patient appears nontoxic in no acute distress or pain. Rest of exam is benign. Labs were unremarkable. EKG showed sinus rhythm with no ST segment elevation or depression seen. Patient's symptoms likely due to side effects from starting metoprolol. She was told to contact her prescribing physician today or tomorrow to discuss metoprolol side effects and possible medication change. Return to ED precautions given. Patient understood agree with plan. Lab Data I reviewed the patient's lab results. : 05/29/22 10:04 05/29/22 10:04 Laboratory Results WBC 10.9 10^3/uL (4.0-10.0) H 05/29/22 10:04 RBC 4.00 10^6/uL (4.1-5.3) L 05/29/22 10:04 Hgb 12.4 g/dL (11.5-15.3) 05/29/22 10:04 Hct 36.2 % (37.0-47.0) L 05/29/22 10:04 MCV 90.5 fl (81-99) 05/29/22 10:04 MCH 31.0 pg (28.0-34.0) 05/29/22 10:04 MCHC 34.3 g/dL (30.0-36.0) 05/29/22 10:04 RDW 18.1 % (12.1-15.1) H 05/29/22 10:04 Plt Count 228 10^3/cmm (130-400) 05/29/22 10:04 MPV 10.0 fL (7.4-10.4) 05/29/22 10:04 Neut % (Auto) 61.1 % 05/29/22 10:04 Lymph % (Auto) 28.3 % 05/29/22 10:04 Treasure % (Auto) 6.8 % 05/29/22 10:04 Eos % (Auto) 2.7 % 05/29/22 10:04 Baso % (Auto) 0.7 % 05/29/22 10:04 Neut # (Auto) 6.65 10^3/uL (1.8-7.7) 05/29/22 10:04 Lymph # (Auto) 3.1 10^3/uL (0.8-4.8) 05/29/22 10:04 Treasure # (Auto) 0.7 10^3/uL (0.2-0.9) 05/29/22 10:04 Eos # (Auto) 0.3 10^3/uL (0.0-0.8) 05/29/22 10:04 Baso # (Auto) 0.1 10^3/uL (0.0-0.1) 05/29/22 10:04 Nucleated RBC % (auto) 0 % 05/29/22 10:04 Nucleated RBCs # 0.0 /100WBC 05/29/22 10:04 Sodium 136 mmol/L (136-145) 05/29/22 10:04 Potassium 3.9 mmol/L (3.5-5.1) 05/29/22 10:04 Chloride 100 mmol/L (98-107) 05/29/22 10:04 Carbon Dioxide 28 mmol/L (22-29) 05/29/22 10:04 Anion Gap 11.9 (5-19) 05/29/22 10:04 BUN 8 mg/dL (6-20) 05/29/22 10:04 Creatinine 0.7 mg/dL (0.5-0.9) 05/29/22 10:04 GFR Calculation 92.7 mL/min (90-130) 05/29/22 10:04 Glucose 101 mg/dL (65-115) 05/29/22 10:04 Calculated Osmolality 280 mOsm/kg (285-295) L 05/29/22 10:04 Calcium 9.7 mg/dL (8.5-10.5) 05/29/22 10:04 EKG Data EKG 1: EKG interpretation date: 05/29/22 Interpretation: Sinus rhythm, [address] segment elevation or depression seen. Discharge Plan Discharge Patient Disposition: Home Clinical Impression: Side effect of medication Condition: Stable Prescriptions: No Action ipratropium-albuterol 0.5 mg-3 mg(2.5 mg base)/3 mL solution for nebulization 3 ml inhalation BID Qty: 90 0RF albuterol sulfate 90 mcg/actuation HFA aerosol inhaler 2 puff inhalation Q6H PRN (Reason: shortness of breath or wheezing) Qty: 8.5 1RF amlodipine 2.5 mg tablet 2.5 mg PO DAILY Qty: 30 2RF metoprolol tartrate 25 mg tablet 25 mg PO BID Qty: 180 3RF melatonin 10 mg tablet 20 mg PO .HS albuterol sulfate 2.5 mg /3 mL (0.083 %) solution for nebulization 2.5 mg inhalation Q6H PRN (Reason: Shortness Of Breath) 30 Days Qty: 120 0RF multivitamin Tablet 1 tab PO DAILY cranberry 400 mg Capsule 800 mg PO DAILY Rx Instructions: administer with a meal aspirin 81 mg tablet,delayed release (DR/EC) 81 mg PO DAILY Qty: 30 0RF Discharge Orders: Discharge ED (Routine); Ordered 05/29/22 Ordered By: Yao Pickens Referrals: June Heredia MD [Primary Care Provider] - Discharge Diet: Regular Discharge Activity: Increase activity as tolerated Activity Restrictions/Additional Instructions: Follow-up with PCP within the next couple days to discuss blood pressure medication management. Continue taking all home medications as previously prescribed. return to the ER or your medical provider if condition worsens. Please read and understand discharge instructions. Thank you for choosing [facility] for your healthcare needs today. Please realize this is an emergency room and that we are providing you with a medical screening exam and this may not be complete and all inclusive of all the testing and or work up that you may need to determine your ailment or severity of your illness. It is very important that you follow up as instructed or that you return to the Emergency Department should you have concerns or if your condition changes or worsens in any way. Stand Alone Forms: Work/School Release Coding Level of Care Code ED Rn Placement for Maura Fwvince Exam Comprehensive
[2022-05-29 11:52] VITALS: BP 145/78; PULSE 65; RESP 16; O2SAT 98
== END 2022-05-29 11:53 | disposition home or self-care (01) ==
PROVIDERS: Family Medicine; Emergency Provider Physician Assistant; PCP Family Medicine
DX: T88.7XXA Unspecified adverse effect of drug or medicament, initial encounter (principal); T44.7X5A Adverse effect of beta-adrenoreceptor antagonists, initial encounter; Z79.82 Long term (current) use of aspirin; F17.210 Nicotine dependence, cigarettes, uncomplicated
CPT/HCPCS: 36415; 80048; 85025; 93005; 99284

== ENCOUNTER 2022-06-04 11:38 | Outpatient (CLI) | payer BC, SELFPAY ==
[2022-06-04 12:10] VITALS: BMI 44.7
--- NOTE | 2022-06-04 12:11 | ECG_ITS ---
[facility] Test Date: 2022-06-04 Pat Name: Hoda Kingston Department: Room: Gender: Female Command Center Officer: : 1980 Requested By: June Heredia Order Number: [id number] López MD: Linda Barroso M.D. Interpretive Statements NAME OF STUDY: TREADMILL STRESS TEST INDICATION: Chest Pain Baseline blood pressure of 137/92 mm Hg, heart rate of 101 beats per minute and oxygen saturation of 95%. EKG showed sinus tachycardia, normal axis with nonspecific T wave inversion in lead III. The patient exercised for 3 minutes on a standard Angel protocol. Patient attained a maximum heart rate of 171 beats per minute(95% of the maximum predicted heart rate) with a blood pressure at the peak exercise of 137/78 mm Hg and oxygen saturation of 97%. The EKG at the peak exercise revealed sinus tachycardia at 170 bpm with no significant ST-T wave changes. Patient did not have any significant arrhythmis with the exercise. Patient developed chest pain during stage I of exercise and 4 minutes into recovery. During the recovery phase, there were no new changes. Blood pressure at the end of the recovery phase was 124/73 mm Hg with a heart rate of 106 beats per minute and oxygen saturation 95%. CONCLUSION: 1. Normal EKG response to treadmill exercise. 2. No exercise-induced chest pain or cardiac arrhythmia 3. Decreased exercise tolerance, attained a maximum of 4.5 METs. Patient just exercised for 3 minutes. 4. Baseline hypertension with normal response to exercise. 5. Baseline tachycardia with exaggerated heart rate response to exercise (suggestive of deconditioning). Electronically Signed On 06-04-2022 16:33:59 CDT by Linda Barroso M.D. [email or web address]
[2022-06-04 12:48] VITALS: BP 124/73; PULSE 105
== END 2022-06-04 11:39 | disposition home or self-care (01) ==
LOC: CDL 11:44
PROVIDERS: PCP Family Medicine; Visit Provider Family Medicine
DX: R07.9 Chest pain, unspecified (principal); I10 Essential (primary) hypertension
CPT/HCPCS: 93017

== ENCOUNTER 2022-07-24 13:30 | Emergency (ER) | payer BC, SELFPAY ==
--- NOTE | 2022-07-24 14:26 | XR_ITS ---
WS: [id number] EXAMINATION: XR foot LT min 3V* [id number] REASON FOR EXAM: injury/pain COMPARISON: None available. ORDER DATE: 07/24/2022 2:41 PM TECHNIQUE: 3 views of the left foot were obtained. X-RAY FINDINGS: There are no fractures or dislocations. No focal abnormal soft tissue swelling. Joint spaces are pres erved. There is mild metatarsus varus deformity at the first MTP joint. There is a somewhat prominent calcan eal spur noted. XR/XR foot LT min 3V* [id number] IMPRESSION: No fractures or dislocations of the left foot.
[2022-07-24 14:33] VITALS: BP 143/84; PULSE 123; RESP 16; TEMP 36.8; O2SAT 96; BMI 45.1
--- NOTE | 2022-07-24 14:58 | XR_ITS ---
WS: [id number] EXAMINATION: XR ankle LT min 3V* [id number] REASON FOR EXAM: injury/pain COMPARISON: None available. ORDER DATE: 07/24/2022 2:58 PM TECHNIQUE: 3 views of the left ankle were obtained. X-RAY FINDINGS: No acute osseous changes. There is some minor degenerative change and small ossicle at the medial mal leolus. XR/XR ankle LT min 3V* [id number] IMPRESSION: No fractures or dislocations of the left ankle.
--- NOTE | 2022-07-24 14:58 | W.ED.LOWEXIN ---
HPI - Extremity Injury (Lower) General: Chief Complaint: Extremity Injury, Lower Stated Complaint: left foot injury Time Seen by Provider: 07/24/22 14:49 Source: patient Mode of arrival: ambulatory Limitations: no limitations History of Present Illness: Patient is a 41-year-old female presents to ED today with a complaint of left foot and ankle pain at that she sustained after twisting it after tripping on her dog earlier today. Patient states she has been ambulatory with a limp on the extremity. She has noticed swelling to the dorsum of her foot. She denies any other injuries or complaints related to the fall. Denies numbness, tingling, or loss of sensation to the foot. She has not noticed any color or temperature changes. No ecchymosis. MD complaint: ankle injury and foot injury Onset (ago): hour(s) Injury: Left: ankle and foot Place: home Severity: moderate Relieving factors: immobilization Exacerbating factors: weight bearing and movement Context: fall (twisting) Associated symptoms: Reports no associated symptoms Other symptoms: none Review of Systems Musc: Reports: extremity pain (L foot), extremity swelling and joint pain (L ankle) Neuro: Denies: numbness in extremities or sensory changes PFSH ED PFSH: Medical History Aftercare following surgery of the genitourinary system Bronchitis Headache Hx of tendinitis R hand No pertinent past medical history neghx: htn,dm,thyroid,dvt/pe PCP: None Surgical History H/O: hysterectomy 05/29/2021- TVH performed by Dr. Goff at [facility] History of cholecystectomy Hx of melanoma excision (~1994) thoracic area Hx of removal of cyst right foot Hx of tonsillectomy Hx of tubal ligation Family History Grandmother Diabetes Maternal and Paternal Hypertension Maternal and Paternal Stroke Maternal Thyroid disease Maternal Father Hypertension Stroke Grandfather Hypertension Maternal and Paternal Stroke Paternal Mother Colon cancer dx age 58 Social History Smoking and tobacco status: current every day smoker (1 PPD 27 year history) Female Reproductive History: Date of last menstrual period: 05/27/21 Spontaneous abortions: No Physical Exam Const: COMMON NORMALS: no acute distress, no limitations and alert HENMT: COMMON NORMALS: normocephalic and atraumatic HEAD & SCALP: normal to inspection, normocephalic and atraumatic Neck/C-Spine: CERVICAL SPINE: Yes cervical ROM normal and No Cervical spine tenderness Back/Pelvis: COMMON NORMALS: thoracic and lumbar spine normal to inspection, no thoracic nor lumbar tenderness and thoraco-lumbar ROM normal Extremity: COMMON NORMALS: capillary refill normal GENERAL: Yes normal exam except as noted LEFT LOWER EXTREMITY: Yes ankle joint and Yes foot & digits OTHER: TTP mainly to L lateral foot; mild swelling noted to dorsal foot; palpable pulses and brisk cap refill present; sensory normal; no bony deformity noted Neuro: SENSORIUM/ORIENTATION: Yes alert Course Vital Signs: Vital signs: Vital Signs Temperature 98.2 F 07/24/22 14:33 Pulse Rate 123 H 07/24/22 14:33 Respiratory Rate 16 07/24/22 14:33 Blood Pressure 143/84 07/24/22 14:33 Pulse Oximetry 96 07/24/22 14:33 Oxygen Delivery Me thod 07/24/22 14:33 MDM - Extremity Injury (Lower) Medical Decision Making XRs negative. Personal interpretation does show a small cortical defect off of patient's lateral malleolus. It is round/smooth. Radiologist does not feel this is an acute fracture. She has no point tenderness over her lateral malleolus supporting this. Patient will be given an JACKELINE wrap. She states she has crutches at home she can use. RICE therapy discussed. Recommend follow-up with PCP in 1 to 2 weeks if symptoms do not seem to be improving. Lab Data Radiology Impressions Foot X-Ray 07/24/22 14:26 IMPRESSION: No fractures or dislocations of the left foot. Ankle X-Ray 07/24/22 14:58 IMPRESSION: No fractures or dislocations of the left ankle. Discharge Plan Discharge Patient Disposition: Home Clinical Impression: Sprain of left foot Qualifiers: Encounter type: initial encounter Qualified Code(s): S93.602A - Unspecified sprain of left foot, initial encounter Condition: Stable Prescriptions: No Action ipratropium-albuterol 0.5 mg-3 mg(2.5 mg base)/3 mL solution for nebulization 3 ml inhalation BID Qty: 90 0RF albuterol sulfate 90 mcg/actuation HFA aerosol inhaler 2 puff inhalation Q6H PRN (Reason: shortness of breath or wheezing) Qty: 8.5 1RF metoprolol tartrate 25 mg tablet 25 mg PO BID 30 Days Qty: 60 3RF ondansetron HCl 4 mg tablet 4 mg PO BID PRN (Reason: nausea and vomiting) 14 Days Qty: 28 0RF melatonin 10 mg tablet 20 mg PO .HS albuterol sulfate 2.5 mg /3 mL (0.083 %) solution for nebulization 2.5 mg inhalation Q6H PRN (Reason: Shortness Of Breath) 30 Days Qty: 120 0RF docusate sodium 100 mg tablet 100 mg PO DAILY PRN multivitamin Tablet 1 tab PO DAILY cranberry 400 mg Capsule 800 mg PO DAILY Rx Instructions: administer with a meal aspirin 81 mg tablet,delayed release (DR/EC) 81 mg PO DAILY Qty: 30 0RF Discharge Orders: Discharge ED (Routine); Ordered 07/24/22 Ordered By: Kimmie Landis Referrals: June Heredia MD [Primary Care Provider] - Patient Instructions: Foot Sprain (ED), RICE Therapy Stand Alone Forms: Work/School Release Coding Level of Care Code ED Metal Grinder for Maura Fwd Exam Detailed
== END 2022-07-24 16:00 | disposition home or self-care (01) ==
PROVIDERS: Emergency Provider Physician Assistant; PCP Family Medicine
DX: S93.602A Unspecified sprain of left foot, initial encounter (principal); Z79.82 Long term (current) use of aspirin; F17.210 Nicotine dependence, cigarettes, uncomplicated; W01.0XXA Fall on same level from slipping, tripping and stumbling without subsequent striking against object, initial encounter
CPT/HCPCS: 73610; 73630; 99283

== ENCOUNTER 2022-08-28 10:13 | Outpatient (CLI) | payer BC, SELFPAY ==
--- NOTE | 2022-08-28 10:15 | USCV_ITS ---
Hoda Kingston Age: 41 Gender: F : 1980 Exam Date: 08/28/2022 10:31 Ordering Phys: June Heredia MD Technologist: JU [place] [facility] [place]: HYPERTENSION BP: 140 / 102 HR: 87 Rhythm: Sinus Technical Quality: Adequate MEASUREMENTS (Male / Female) Normal Values 2D ECHO LVOT Diameter 2.0 cm LV Ejection Fraction MOD 2C 70.2 % LV Ejection Fraction 2C AL 71.3 % LA Diameter 3.2 cm LA Width 2.9 cm LA Height 4.5 cm RA Width 3.1 cm RA Height 4.3 cm Aorta at Sinotubular Diameter 2.7 cm M-MODE Aortic Annulus Diameter 3.0 cm LA Ao Ratio MM 1.0 MV E Point Septal Separation 0.7 cm DOPPLER AV Peak Velocity 137.0 cm/s LVOT Peak Velocity 135.0 cm/s AV Area Cont Eq vti 3.4 cm squared AV Area Cont Eq pk 3.1 cm squared MV Peak Velocity 87.0 cm/s MV Area PHT 3.7 cm squared Mitral E to A Ratio 1.3 MV E' Velocity 45.0 cm/s Mitral E to MV E' Ratio 7.9 Mitral E to LV E' Lateral Ratio 8.4 Mitral E to LV E' Septal Ratio 7.5 TR Peak Velocity 148.5 cm/s TR Peak Gradient 8.8 mmHg TR Mean Velocity 118.9 cm/s TR Mean Gradient 5.9 mmHg TR Velocity Time Integral 40.1 cm TV Peak E Velocity 49.0 cm/s Right Atrial Pressure 8.0 mmHg Pulmonary Artery Systolic Pressu 16.8 mmHg PV Peak Velocity 87.0 cm/s RV Acceleration Time 0.1 s RV Ejection Time 0.3 s RV AcT/ET 0.3 FINDINGS Left Ventricle Normal left ventricular size, systolic function and wall thickness, with no regional wall motion abnormalities. Left ventricular ejection fraction is estimated at 70 %. Normal diastolic function. Right Ventricle Normal right ventricular size and systolic function. Right ventricular systolic pressure 16.8 mmHg. Right Atrium Normal right atrial size. Left Atrium Normal left atrial size. Mitral Valve Structurally normal mitral valve. No mitral valve stenosis. Trace mitral valve regurgitation. Aortic Valve Structurally normal trileaflet aortic valve. No aortic valve stenosis. No aortic valve regurgitation. Tricuspid Valve Structurally normal tricuspid valve. No tricuspid valve stenosis. Trace tricuspid valve regurgitation. Pulmonic Valve Structurally normal pulmonic valve. No pulmonary valve stenosis. Trace pulmonary valve regurgitation. Pericardium No pericardial effusion. Aorta Normal size aortic root and proximal ascending aorta. IVC Normal IVC dimension with >50% respiratory change of the inferior vena cava. CONCLUSIONS 1. Normal left ventricular size, systolic function and wall thickness, with no regional wall motion abnormalities. Left ventricular ejection fraction is estimated at 70 %. Normal diastolic function. 2. No significant valvular abnormality. 3. No prior similar studies to compare. Linda Barroso MD (Electronically Signed) Final Date: 30 August 2022 18:59 S
[2022-08-28] MEDS: perflutren protein-a microsphr 0.22 mg/mL SDV 3 mL IV (11:02)
== END 2022-08-28 10:14 | disposition home or self-care (01) ==
PROVIDERS: PCP Family Medicine; Visit Provider Family Medicine
DX: I10 Essential (primary) hypertension (principal); R07.89 Other chest pain; R06.02 Shortness of breath
CPT/HCPCS: C8929; Q9956

== ENCOUNTER 2022-09-02 11:17 | Emergency (ER) | payer BC, SELFPAY ==
[2022-09-02 11:24] VITALS: BP 135/86; PULSE 124; RESP 22; TEMP 36; O2SAT 94; BMI 44.7
[2022-09-02 11:46] VITALS: BP 149/94; PULSE 95; RESP 18; O2SAT 99
--- NOTE | 2022-09-02 11:46 | CT_ITS ---
WS: [id number] CT HEAD NONCONTRAST HISTORY: prolonged leyva-no prior imaging TECHNIQUE: Contiguous axial imaging performed through the brain in 2.5 mm imaging. Bone and soft tiss ue windows. Sagittal and coronal reformats reviewed. All CT scans at [facility] use at least one of these dose optimization techniques: automated exposure control; mA and/or kV adjustment per pa tient size (includes targeted exams where dose is matched to clinical indication); or iterative recon struction. DLP: 1092.21 mGy.cm COMPARISON: None available. No acute intracranial hemorrhage, midline shift or mass effect. No atrophy or prior infarcts or herniation. Ventricles: Normal size with no hydrocephalus. Paranasal sinuses: As visualized are clear. Mastoid air cells: Well pneumatized. Calvarium and scalp: Skull is intact with no soft tissue edema or swelling. CT/CT head wo con* [id number] IMPRESSION: Negative head CT.
--- NOTE | 2022-09-02 11:47 | ED_ITS ---
HPI - Headache General: Chief Complaint: Headache Stated Complaint: headache Time Seen by Provider: 09/02/22 11:38 Source: patient Mode of arrival: ambulatory Limitations: no limitations History of Present Illness: This lady makes her way to the emergency department because of concerns about a prolonged headache. She states she has had this current headache for 5 days. She states it began gradually as noted approximately 5 days ago and has persisted since that time. She states it is frontal occipital in location. She states it is pounding as well as pressure. She gets nauseated at times with a headache but has not vomited. She states she has had no fevers, falls or other contributing factors. She does have a history of what she was told was migraine headaches that occur couple of times monthly. They are usually relieved by some [id number] home medications for the most part. She states that she used to drink caffeine quite heavily but quit that approximately 6 months ago. She states her headaches initially got worse and then seem to improve some after she was off caffeine. She is a tobacco user but has not noted any relationship for headaches and that substance. She denies weakness numbness etc. She states her sister also gets recurrent headaches. She states she is never had any imaging of her headache. She did call her primary care doctor who referred her to the emergency department today. She states she is never had a headache that lasted this long previously. She is attempted to work this week but has been unsuccessful due to her headache. No recent illness cough cold congestion sore throat etc. MD elicited complaint: headache Location: frontal and occipital Severity: moderate Quality & Timing: throbbing and pressure Exacerbating factors: light and noise Context: occurred at rest Associated symptoms: Deny fever(s) or vomiting Review of Systems Const: Denies: fever(s) or chills Eyes: Denies: change in vision ENMT: Denies: odynophagia, nasal discharge or nasal congestion GI: Denies: abdominal pain or vomiting Musc: Reports: neck pain; Denies: back pain, extremity pain or extremity swelling Neuro: Reports: headache(s); Denies: numbness in extremities, weakness in extremities, dizziness, Slurred speech present or seizure-like activity Psych: Denies: anxiety or depression [facility] ED PFSH: Medical History Aftercare following surgery of the genitourinary system Bronchitis Headache Hx of tendinitis R hand No pertinent past medical history neghx: htn,dm,thyroid,dvt/pe PCP: None Surgical History H/O: hysterectomy 05/29/2021- TVH performed by Dr. Goff at [facility] History of cholecystectomy Hx of melanoma excision (~1994) thoracic area Hx of removal of cyst right foot Hx of tonsillectomy Hx of tubal ligation Family History Grandmother Diabetes Maternal and Paternal Hypertension Maternal and Paternal Stroke Maternal Thyroid disease Maternal Father Hypertension Stroke Grandfather Hypertension Maternal and Paternal Stroke Paternal Mother Colon cancer dx age 58 Social History Smoking and tobacco status: current every day smoker (1 PPD 27 year history) Female Reproductive History: Date of last menstrual period: 05/27/21 Spontaneous abortions: No Physical Exam Narrative: EXAM NARRATIVE: Patient was sitting comfortably in a darkened room and responded appropriately to questions. Const: COMMON NORMALS: no acute distress, patient oriented x3, healthy appearing and alert GENERAL APPEARANCE: cooperative and comfortable NUTRITIONAL APPEARANCE: overweight HENMT: COMMON NORMALS: normocephalic, atraumatic, Normal nasal mucous membranes and turbinates present, moist oral mucous membranes and oropharynx normal HEAD & SCALP: normocephalic and atraumatic; no scalp tenderness FACE & SINUS: normal facial exam and sinuses nontender NOSE: Normal nasal mucous membranes and turbinates present Eye: COMMON NORMALS: Equal, round and reactive pupils present, EOMs intact bilaterally and conjunctivae normal CONJUNCTIVA: Yes conjunctivae normal P UPIL: Yes Equal, round and reactive pupils present Neck/C-Spine: COMMON NORMALS: no lymphadenopathy, supple, no meningeal signs and No carotid bruits OTHER: She has normal range of motion to forward bending sidebending and rotation of the cervical spine. She has tenderness along the paravertebral soft tissue extending into the superior trapezius bilaterally which is exacerbated by rotation of her neck particularly to the left. No midline tenderness or step- off. Chest: COMMONS NORMALS: normal inspection of the chest Resp: COMMON NORMALS: normal respiratory effort, clear to auscultation bilaterally and percussion normal AUSCULTATION: clear to auscultation bilaterally PERCUSSION: percussion normal Cardio: COMMON NORMALS: regular rhythm, S1 normal heart sound present, No murmurs present (Cardio) and Peripheral pulses 2+ throughout RHYTHM: regular rhythm HEART SOUNDS: S1 normal heart sound present PERIPHERAL PULSES: Peripheral pulses 2+ throughout GI: COMMON NORMALS: Normal to inspection, nondistended, normoactive bowel sounds present, Soft to palpation and non-tender PALPATION: Yes Soft to p alpation : COMMON NORMALS: Yes no CVA tenderness BLADDER/KIDNEY EXAM: Yes no CVA tenderness Back/Pelvis: COMMON NORMALS: no CVA tenderness, no thoracic nor lumbar tenderness, thoraco-lumbar ROM normal and straight leg raise negative bilaterally Extremity: COMMON NORMALS: normal to inspection, full ROM, no calf tenderness and no pedal edema Neuro: COMMON NORMALS: patient oriented x3, moves all extremities, no focal motor deficits and no sensory deficits noted SENSORIUM/ORIENTATION: Yes alert MENINGEAL SIGNS: Yes no meningeal signs CRANIAL NERVES: Yes CN normal except as noted COORDINATION/BALANCE: [id number]-[id number] test normal and [id number] test normal SPEECH: speech normal GAIT: Yes Normal gait present MOTOR EXAM: 5/5 motor strength present throughout, Pronator motor function not present and no tremor noted COORDINATION: [id number] test normal and umge-bb-yghm test normal Psych: COMMON NORMALS: mental status grossly normal Skin: COMMON NORMALS: no rashes or lesions noted GENERAL SKIN EXAM: no rashes or lesions noted Course Reevaluation(s): Reevaluation #1: No new or focalReevaluation reveals the patient to be feeling much better. Findings on repeat examination. I discussed CT scan results, limitations and implications. She states she feels like she wants to go home at this point. Time: 13:13 Vital Signs: Vital signs: Vital Signs Temperature 96.8 F L 09/02/22 11:24 Pulse Rate 95 09/02/22 11:46 Respiratory Rate 18 09/02/22 11:46 Blood Pressure 149/94 09/02/22 11:46 Pulse Oximetry 99 09/02/22 11:46 Oxygen Delivery Me thod 09/02/22 11:46 MDM - Headache Medical Decision Making This patient presented to emergency department with a 5-day headache history. She states the onset of in the direct other characteristics of her headache are similar to that that she is experienced in the past however the duration is much more prolonged. There was no concerning history of fevers, trauma etc. She had no focal findings on clinical examination to suggest such as things as a possible stroke, complex migraine etc. Because of her presentation today with prolonged headache and no prior history of ever having imaging for her given diagnosis of migraine in the past imaging was undertaken. Imaging obtained here was reassuring without evidence of intracranial hemorrhage or other concerning findings. Her risk of intracranial hemorrhage, etc. was low in the outset but imaging was obtained because of atypical features as well as no prior history of imaging. She responded to the usual therapy for migraine headaches and was symptom-free at the time of reevaluation. It is felt that she is at low risk for any serious etiologies of her headache and that she is stable and improved and suitable for discharge with close follow-up. Lab Data I reviewed the patient's lab results. Radiology Impressions Head CT 09/02/22 11:46 IMPRESSION: Negative head CT. Discharge Plan Discharge Patient Disposition: Home Clinical Impression: Headache Condition: Stable Prescriptions: No Action ipratropium-albuterol 0.5 mg-3 mg(2.5 mg base)/3 mL solution for nebulization 3 ml inhalation BID Qty: 90 0RF albuterol sulfate 90 mcg/actuation HFA aerosol inhaler 2 puff inhalation Q6H PRN (Reason: shortness of breath or wheezing) Qty: 8.5 1RF metoprolol tartrate 25 mg tablet 25 mg PO BID 30 Days Qty: 60 3RF ondansetron HCl 4 mg tablet 4 mg PO BID PRN (Reason: nausea and vomiting) 14 Days Qty: 28 0RF melatonin 10 mg tablet 20 mg PO BEDTIME albuterol sulfate 2.5 mg /3 mL (0.083 %) solution for nebulization 2.5 mg inhalation Q6H PRN (Reason: Shortness Of Breath) 30 Days Qty: 120 0RF docusate sodium 100 mg tablet 100 mg PO DAILY PRN (Reason: Constipation) multivitamin Tablet 1 tab PO DAILY cranberry 400 mg Capsule 800 mg PO DAILY Rx Instructions: administer with a meal aspirin 81 mg tablet,delayed release (DR/EC) 81 mg PO DAILY Qty: 30 0RF Discharge Orders: Discharge ED (Routine); Ordered 09/02/22 Ordered By: Jericho Lui Referrals: June Heredia MD [Primary Care Provider] - 7-10 days Discharge Diet: Usual diet Discharge Activity: Resume usual activity Patient Instructions: Opioid Safety, Pain Management Activity Restrictions/Additional Instructions: Continue usual activity. If you develop recurrent headaches or worsening symptoms of any time you are welcome to return to the emergency department otherwise for long-term management of your headaches we recommend following up with your family doctor. 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
[2022-09-02] MEDS: diphenhydrAMINE 50 mg/mL SDV 1mL 25 MG IVP (12:03)
[2022-09-02] MEDS: sodium chloride 0.9% 1,000 ML 999 ML IV (12:03)
[2022-09-02] MEDS: metoclopramide 5 mg/mL SDV 2 mL 10 MG IVP (12:03)
== END 2022-09-02 13:47 | disposition home or self-care (01) ==
PROVIDERS: Emergency Provider Emergency Medicine; PCP Family Medicine
DX: R51.9 Headache, unspecified (principal); Z79.82 Long term (current) use of aspirin; F17.210 Nicotine dependence, cigarettes, uncomplicated
CPT/HCPCS: 70450; 96361; 96374; 96375; 99285; J1200; J2765; J7030

== ENCOUNTER → 2023-05-15 15:42 | Outpatient (BNVA) | payer BC, SELFPAY | PROVIDERS: PCP Family Medicine; Visit Provider Emergency Medicine | DX: M25.531 Pain in right wrist (principal) | CPT/HCPCS: 73110 ==

== ENCOUNTER → 2023-05-19 14:00 | Outpatient (BNVA) | payer BC, SELFPAY | PROVIDERS: PCP Family Medicine; Referring Provider Emergency Medicine; Visit Provider Physician Assistant | DX: S52.531A Colles' fracture of right radius, initial encounter for closed fracture (principal); W18.2XXA Fall in (into) shower or empty bathtub, initial encounter; Y99.0 Civilian activity done for income or pay | CPT/HCPCS: 73110 ==

== ENCOUNTER 2023-05-19 15:22 | Outpatient (CLI) | payer BC, SELFPAY | END 2023-05-19 15:23 | disposition home or self-care (01) | LOC: SPT 15:23 | PROVIDERS: PCP Family Medicine; Visit Provider Physician Assistant | DX: Z46.89 Encounter for fitting and adjustment of other specified devices (principal); S52.591D Other fractures of lower end of right radius, subsequent encounter for closed fracture with routine healing; X58.XXXD Exposure to other specified factors, subsequent encounter | CPT/HCPCS: 97760; L3982 ==

== ENCOUNTER 2025-05-10 02:24 | Emergency (ER) | payer BC, SELFPAY ==
--- NOTE | 2025-05-10 02:26 | ECG_ITS ---
[facility]10 Pat Name: Hoda Kingston Department: Room: Gender: Female [employer]: : 1980 Requested By: Leonardo Cardenas Order Number: [id number] Rene MD: Lior Juarez M.D. Measurements Intervals [place] Rate: 82 P: 11 MS: 147 QRS: 52 QRSD: 113 T: 43 QT: 408 QTc: 479 Interpretive Statements SINUS RHYTHM LOW QRS VOLTAGE IN PRECORDIAL LEADS [QRS DEFLECTION < 1.0 mV IN CHEST LEADS] INCOMPLETE RIGHT BUNDLE BRANCH BLOCK [90+ ms QRS DURATION, TERMINAL R IN V1/V2, 40+ ms S IN I/aVL/V4/V5/V6] Compared to ECG 05/29/2022 09:33:58 NO SIGNIFICANT CHANGE Electronically Signed On 05-10-2025 21:24:28 CDT by Lior Juarez M.D. [email or web address]
--- NOTE | 2025-05-10 02:26 | XRR_ITS ---
PROCEDURE INFORMATION: Exam: XR Chest Exam date and time: 05/10/2025 2:40 AM Age: 44 years old Clinical indication: Cough; Additional info: Lightheaded TECHNIQUE: Imaging protocol: Radiologic exam of the chest. Views: 1 view. COMPARISON: CR XR chest 1V portable [id number] 02/21/2022 8:55 AM FINDINGS: Lungs: Unremarkable. No consolidation. Pleural spaces: Unremarkable. No pleural effusion. No pneumothorax. Heart/Mediastinum: Unremarkable. No cardiomegaly. Bones/joints: Unremarkable. XR/XR chest 1V portable [id number] IMPRESSION: No acute findings.
--- OUTSIDE RECORDS SUMMARY | 2025-05-10 02:27 | XMS_ITS | Clinical Summary ---
Author Organization [facility] Address [address] [place] [address] Care Team Providers Care Refining Still Operator Name Role Phone Shauna Orta DO Primary Care Provider Allergies Active Allergy Reactions Criticality Noted Date Comments Sulfa (Sulfonamide Antibiotics) Anaphylaxis High Medications albuterol HFA 90 mcg inhaler Take 2 Puffs by inhalation every 6 hours as needed for Shortness of Breath. 8.5 Gram 0 0 Active Additional Information Patient not taking.Reported on 04/19/2025 Blood-Glucose MeterIndication s:Hyperglycemia Use to check blood sugar daily as needed 1 Each 5 Active blood sugar diagnostic StripIndication s:Hyperglycemia Use to check blood sugar daily as needed 100 Each 3 5 Active alcohol Pads, MedicatedIndica tions:Hyperglyc emia Use daily to monitor blood sugar level. 100 Each 3 5 Active lancetsIndicati ons:Hyperglycem ia Use to check blood sugar daily as needed 100 Each 3 5 Active Active Problems Problem Noted Date Diagnosed Date Mixed hyperlipidemia 04/21/2025 Family history of diabetes mellitus (DM) 025 S/P partial hysterectomy 04/19/2025 Encounters Date Type Department Care Team Description 04/25/2025 External Device Data STL ABSTRACTION Provider, Abstract 04/25/2025 External Device Data STL ABSTRACTION Provider, Abstract 04/25/2025 External Device Data STL ABSTRACTION Provider, Abstract 04/21/2025 Results Follow-Up [facility] [address] [facility] [place] [address] Calvin Joyner FNP LIPID PANEL, TSH, HEMOGLOBIN A1C, Additional followed-up results: 3 04/19/2025 8:20 AM CDT Office Visit [facility] [address] [facility] [place] [address] Calvin Joyner FNP Hyperglycemia (Primary Dx); Family history of diabetes mellitus (DM); Dizziness; Visit for screening mammogram; S/P partial hysterectomy from Last 3 Months Family History Medical History Relation Name Comments Heart Disease Father Stroke Maternal Aunt Cancer Maternal Grandfather Diabetes Maternal Grandmother Heart Disease Maternal Grandmother High Cholesterol Maternal Grandmother Colon Cancer Mother Diabetes Mother Diabetes Paternal Grandmother Heart Disease Paternal Grandmother Relation Name Status Comments Father Maternal Aunt Maternal Grandfather Maternal Grandmother Mother Paternal Grandmother Social History Tobacco Use Types Packs/Day Years Used Date Smoking Tobacco: Every Day Cigarettes Passive Smoke Exposure: Current Smokeless Tobacco: Never Tobacco Cessation:Ready to Q uit: No; Counseling Given: Yes Alcohol Use Standard Drinks/Week Comments No 0 (1 standard drink = 0.6 oz pur e alcohol) Comments Unknown Sex and Gender Information Value Date Recorded Sex Assigned at Not on file Legal Sex Female 10:34 PM CDT Gender Identity Not on file Sexual Orientation Not on file Last Filed Vital Signs Vital Sign Reading Time Taken Comments Blood Pressure 130/82 04/19/2025 8:20 AM CDT Pulse 102 04/19/2025 8:20 AM CDT Temperature 36.9 C (98.5 F) 04/19/2025 8:20 AM CDT Respiratory Rate 18 04/19/2025 8:20 AM CDT Oxygen Saturation 92% 04/19/2025 8:20 AM CDT Inhaled Oxygen Concentration - - Weight 105.2 kg (232 lb) 04/19/2025 8:20 AM CDT Height 152.4 cm (5') 04/19/2025 8:20 AM CDT Body Mass Index 45.31 04/19/2025 8:20 AM CDT Plan of Treatment Health Maintenance Due Date Last Done Comments DTAP/TDAP/TD VACCINES (1 - Tdap) 2000 HEPATITIS B VACCINES (1 of 3 - 19+ 3-dose series) 2000 HPV VACCINES (1 - 3-dose SCD M series) 2008 BREAST CANCER SCREENING 2021 PAP SMEAR 02/16/2022 02/16/2019, 02/16/2019 CERVICAL CANCER SCREENING 02/17/2024 HPV/Cotest (21-29) 02/17/2024 02/16/2019 HPV/Cotest (30-65) 02/17/2024 02/16/2019 Preventative Visit- Commercial 08/17/2024 02/16/2019 INFLUENZA VACCINE (#1) 2025 02/04/2019 COVID-19 Vaccine (2024-2 6 season) 2025 07/03/2022, 11/15/2021, 10/17/2020, Additional history exists Pre-Diabetes and Diabetes Screening 04/19/2028 04/19/2025 Procedures Procedure Name Priority Date/Time Associated Diagnosis Comments CBC WITH DIFFERENTIAL Routine 04/19/2025 8:48 AM CDT Hyperglycemia Family history of diabetes mellitus (DM) Dizziness COMPREHENSIVE METABOLIC PANEL Routine 04/19/2025 8:48 AM CDT Hyperglycemia Family history of diabetes mellitus (DM) Dizziness HEMOGLOBIN A1C Routine 04/19/2025 8:48 AM CDT Hyperglycemia Family history of diabetes mellitus (DM) Dizziness TSH Routine 04/19/2025 8:48 AM CDT Hyperglycemia Family history of diabetes mellitus (DM) Dizziness LIPID PANEL Routine 04/19/2025 8:48 AM CDT Hyperglycemia Family history of diabetes mellitus (DM) Dizziness GLUTAMIC ACID DECARBOXYLASE ANTIBODY Routine 04/19/2025 8:48 AM CDT Hyperglycemia Family history of diabetes mellitus (DM) Dizziness CERV/VAG CYTO SCREEN PAP RLFX HPV Routine 02/16/2019 8:58 AM CDT from Last 3 Months or Most Recently Relevant to Health Maintenance Results * GLUTAMIC ACID DECARBOXYLASE ANTIBODY (04/19/2025 8:48 AM CDT) Pathologist [facility] GLUTAMIC ACID DECARBOXYLASE AB <5 <5 IU/mL [facility] Comment: This test was performed using the GAD65 GEORGE method, which is standardized against the International reference preparation 97/550. Test Performed at: [facility] [address] [place] Demarcus Boston M.D.,PhD Blood 04/19/2025 8:48 AM CDT 04/20/2025 3:05 AM CDT [place] Chris Joyner [facility] CHEMISTRY ORDERABLES Final Result [facility] [phone] [facility] [address] [place] * (ABNORMAL) CBC WITH DIFFERENTIAL (04/19/2025 8:48 AM CDT) Pathologist [facility] WBC 9.1 3.8 - 10.8 Thousand/u L [facility] RBC 3.82 3.80 - 5.10 Million/uL [facility] HEMOGLOBIN 11.7 11.7 - 15.5 g/dL [facility] HEMATOCRIT 36.4 35.0 - 45.0 % [facility] MCV 95.3 80.0 - 100.0 fL [facility] MCH 30.6 27.0 - 33.0 pg [facility] MCHC 32.1 32.0 - 36.0 g/dL [facility] Comment: For adults, a slight decrease in the calculated MCHC value (in the range of 30 to 32 g/dL) is most likely not clinically significant; however, it should be interpreted with caution in correlation with other red cell parameters and the patient's clinical condition. RDW 17.7(H) 11.0 - 15.0 % [facility] PLATELETS 227 140 - 400 Thousand/u L [facility] MPV 9.9 7.5 - 12.5 fL [facility] NEUTROPHIL ABSOLUTE 5,751 1,500 - 7,800 cells/uL [facility] LYMPHOCYTE ABSOLUTE 2,466 850 - 3,900 cells/uL [facility] MONOCYTE ABSOLUTE 564 200 - 950 cells/uL [facility] EOSINOPHIL ABSOLUTE 218 15 - 500 cells/uL [facility] BASOPHILS ABSOLUTE 100 0 - 200 cells/uL [facility] NEUTROPHIL 63.2 % [facility] LYMPHOCYTES 27.1 % [facility] MONOCYTE 6.2 % [facility] EOSINOPHILS 2.4 % [facility] BASOPHILS 1.1 % [facility] Comment: Test Performed at: [facility] [address] GracieIdalmis Urbina MD Blood 04/19/2025 8:48 AM CDT 04/20/2025 3:05 AM CDT Calvin MANRIQUEP HEMATOLOGY ORDERABLES Ber l Result [facility] [phone] [facility] [employer] [address] * TSH (04/19/2025 8:48 AM CDT) TSH 0.83 mIU/L [facility] Comment: Reference Range > or = 20 Years 0.40-4.50 Ranges First trimester 0.26-2.66 Second trimester 0.55-2.73 Third trimester 0.43-2.91 Test Performed at: [employer] [address] Linda Urbina MD Blood 04/19/2025 8:48 AM CDT 04/20/2025 3:05 AM CDT Calvin MANRIQUEP CHEMISTRY ORDERABLES Final Result Performing Organization Address [facility] Co de Phone Number [facility] [phone] [facility] [address] [facility] [place] [address] * HEMOGLOBIN A1C (04/19/2025 8:48 AM CDT) HEMOGLOBIN A1C 4.7 <5.7 % [facility] Comment: For the purpose of screening for the presence of diabetes: <5.7% Consistent with the absence of diabetes 5.7-6.4% Consistent with increased risk for diabetes (prediabetes) > or =6.5% Consistent with diabetes This assay result is consistent with a decreased risk of diabetes. Currently, no consensus exists regarding use of hemoglobin A1c for diagnosis of diabetes in children. According to [place] Diabetes Association (ADA) guidelines, hemoglobin A1c <7.0% represents optimal control in non- diabetic patients. Different metrics may apply to specific patient populations. Standards of Medical Care in Diabetes(ADA). ESTIMATED AVERAGE GLUCOSE (MG/DL) 88 mg/dL [facility] ESTIMATED AVERAGE GLUCOSE (MMOL/L) 4.9 mmol/L [facility] Comment: Test Performed at: [facility] [address] [address] [place] [address] Linda Urbina MD Blood 04/19/2025 8:48 AM CDT 04/20/2025 3:05 AM CDT Calvin Joyner [facility] CHEMISTRY ORDERABLES Final Result Performing Organization Address [facility] Co de Phone Number [facility] [phone] [facility] [address] [facility] [place] [place] [address] * (ABNORMAL) LIPID PANEL (04/19/2025 8:48 AM CDT) Pathologist [facility] CHOLESTEROL 175 <200 mg/dL [facility] HDL 31(L) > OR = 50 mg/dL [facility] TRIGLYCERIDE 213(H) <150 mg/dL [facility] Comment: If a non-fasting specimen was collected, consider repeat triglyceride testing on a fasting specimen if clinically indicated. Mynor et al. J. of Clin. Lipidol. 2015;9:129-169. LDL CALCULATED 111(H) mg/dL (calc) [facility] Comment: Reference range: <100 Desirable range <100 mg/dL for primary prevention; <70 mg/dL for patients with CHD or diabetic patients with > or = 2 CHD risk factors. LDL-C is now calculated using the Stuart-Mcneil calculation, which is a validated novel method providing better accuracy than the Friedewald equation in the estimation of LDL-C. Stuart SS et al. CHRISTINE. 2013;310(19): 8888-3734 (http://education.Telematics[employer]u Services/faq/XJZ162) CHOL/HDL RATIO 5.6(H) <5.0 (calc) [facility] NON-HDL CHOLESTEROL 144(H) <130 mg/dL (calc) [facility] Comment: For patients with diabetes plus 1 major ASCVD risk factor, treating to a non-HDL-C goal of <100 mg/dL (LDL-C of <70 mg/dL) is considered a therapeutic option. Test Performed at: [employer] [address] [facility] [place] [address] Linda Urbina MD Blood 04/19/2025 8:48 AM CDT 04/20/2025 3:05 AM CDT Calvin Joyner [facility] CHEMISTRY ORDERABLES Final Result [facility] [phone] [employer] [address] [facility] [place] [employer] [address] * (ABNORMAL) COMPREHENSIVE METABOLIC PANEL (04/19/2025 8:48 AM CDT) GLUCOSE 121(H) 65 - 99 mg/dL [facility] Comment: Fasting reference interval For someone without known diabetes, a glucose value between 100 and 125 mg/dL is consistent with prediabetes and should be confirmed with a follow-up test. BUN 10 7 - 25 mg/dL [facility] CREATININE 0.75 0.50 - 0.99 mg/dL [facility] GFR 101 > OR = 60 mL/min/1. 73m2 [facility] BUN/CREAT RATIO SEE NOTE: 6 - 22 (calc) [facility] Comment: Not Reported: BUN and Creatinine are within reference range. SODIUM 137 135 - 146 mmol/L [facility] POTASSIUM 3.7 3.5 - 5.3 mmol/L [facility] CHLORIDE 101 98 - 110 mmol/L [facility] CO2 28 20 - 32 mmol/L [facility] CALCIUM 8.8 8.6 - 10.2 mg/dL [facility] TOTAL PROTEIN 6.9 6.1 - 8.1 g/dL [facility] ALBUMIN 4.1 3.6 - 5.1 g/dL [facility] GLOBULIN 2.8 1.9 - 3.7 g/dL (calc) [facility] ALBUMIN/GLOBULIN RATIO 1.5 1.0 - 2.5 (calc) [facility] BILIRUBIN TOTAL 1.5(H) 0.2 - 1.2 mg/dL [facility] ALKALINE PHOSPHATASE 77 31 - 125 U/L [facility] AST 43(H) 10 - 30 U/L [facility] ALT 43(H) 6 - 29 U/L [facility] Comment: Test Performed at: [employer] [address] [address] Linda Urbina MD Blood 04/19/2025 8:48 AM CDT 04/20/2025 3:05 AM CDT Calvin Joyner SECOND GR[employer] TEACH[employer] CHEMISTRY ORDERABLES Final Result [facility] [phone] [facility] [address] [address] * CERV/VAG CYTO SCREEN PAP RLFX HPV (02/16/2019 8:58 AM CDT) CLINICAL INFORMATION Routine exam 02/24/2019 10:23 AM CDT [facility] LAST MENSTRUAL PERIOD 2019011502/24/2019 10:23 AM CDT [facility] PREV PAP: H/O ABN PAP 02/24/2019 10:23 AM CDT [facility] PREV BX: INFORMATION NOT PROVIDED 02/24/2019 10:23 AM CDT [facility] SOURCE Endocervix 02/24/2019 10:23 AM CDT [facility] ADEQUACY: SEE COMMENT 02/24/2019 10:23 AM CDT [facility] Comment: Satisfactory for evaluation. Endocervical/transformation zone component present. PAP INTERP Negative for intraepithelial lesion or malignancy. 02/24/2019 10:23 AM CDT [facility] COMMENT This Pap test has been evaluated with computer assisted technology. 02/24/2019 10:23 AM CDT [facility] LIBRARY CIRCULATION ASSISTANT: SEE COMMENT 2018 10:23 AM CDT [facility] Comment: DDS, CT(ASCP) CT screening location: [place] [address] [address] [address] REVIEW LIBRARY CIRCULATION ASSISTANT: SEE COMMENT 02/24/2019 10:23 AM CDT [facility] Comment: YQ, CT(ASCP) CT screening location: [place] [address] [address] [facility] EXPLANATORY NOTE SEE COMMENT 019 10:23 AM CDT [facility] Comment: EXPLANATORY NOTE: The Pap is a screening test for cervical cancer. It is not a diagnostic test and is subject to false negative and false positive results. It is most reliable when a satisfactory sample, regularly obtained, is submitted with relevant clinical findings and history, and when the Pap result is evaluated along with historic and current clinical information. Genital SWAB OF ENDOCERVIX / Unknown Collection / Unknown 02/16/2019 8:58 AM CDT 02/21/2019 6:11 AM CDT Narrative [facility] - 02/24/2019 10:23 AM CDT Performing Organization Information: Site ID: Name: [facility] Address: [address] [place] [address] Director: Linda Urbina us Carmen Cowan SECOND GRADE TEACHER PATHOLOGY/CYTOLOGY ORDERABLES Final Result [facility] [phone] [facility] from Last 3 Months or Most Recently Relevant to Health Maintenance Insurance [facility] OUT OF STATE Care Teams Refining Still Operator Relationship Specialty Start Date End Date Shauna Orta DO [address] [place] [address] PCP - General Family Practice 12/12/19
[2025-05-10 02:41] VITALS: BP 145/98; PULSE 102; RESP 18; TEMP 36.4; O2SAT 96; BMI 44.6
--- NOTE | 2025-05-10 02:51 | ED_ITS ---
HPI - URI/Sore Throat 2 General: Chief Complaint: Upper Respiratory Infection Stated Complaint: Light headed, Dizzy, stuffy nose Time Seen by Provider: 05/10/25 02:25 Source: patient Mode of arrival: ambulatory Limitations: no limitations History of Present Illness: 44-year-old female states that over the last 4 to 5 days she has been having a lot of nasal congestion mild headaches just feeling like she has a flulike illness. She states that she works nights and tonight she had taken a nap and woke up after lunch break and when she got up she felt lightheaded and states she almost passed out. States she continues to have a mild headache she rates a 2 out of 10 she states she feels improved did not pass out she denies any chest pain or vomiting. 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 or flu Associated symptoms: Reports headache(s) and nasal congestion; Deny chest pain, fever(s) or vomiting Related Data Home Medications ?Medication ?Instructions ?Recorded ?Confirmed multivitamin 1 tab PO DAILY 01/21/2111/06 cranberry fruit 400 mg capsule 800 mg PO DAILY 2 05/19/23 melatonin 10 mg tablet 20 mg PO BEDTIME 05/05/22 docusate sodium 100 mg tablet 100 mg PO DAILY PRN Cons tipation 07/16/22 05/19/23 Previous Rx's ?Medication ?Instructions ?Recorded ipratropium 0.5 mg-albuterol 3 mg 3 ml inhalation BID #90 mL 05/02/21 (2.5 mg base)/3 mL nebulization soln albuterol sulfate 90 mcg/actuation 2 puff inhalation Q 6H PRN 06/26/21 aerosol inhaler shortness of breath or wheez ing #8.5 grams aspirin 81 mg tablet,delayed 81 mg PO DAILY #30 tabs 0 02/21/22 release albuterol sulfate 2.5 mg/3 mL 2.5 mg (3 mL) inhalation Q6H PRN 04/08/22 (0.083 %) solution for nebulization Shortness Of Breat h 30 days #120 vials metoprolol tartrate 25 mg tablet 25 mg PO BID 30 days #60 tabs 07/17/22 ondansetron HCl 4 mg tablet 4 mg PO BID PRN nausea and 07/17/22 vomiting 14 days #28 tabs amitriptyline 25 mg tablet 25 mg PO .at bedtime 30 day s #30 09/03/22 tabs galcanezumab-gnlm 120 mg/mL 120 mg SUBCUT .Monthly #1 mL 09/29/22 subcutaneous pen injector (Emgality Pen) galcanezumab-gnlm 120 mg/mL 240 mg (2 mL) SUBCUT ONCE #2 mL 09/29/22 subcutaneous pen injector (Emgality Pen) tramadol 50 mg tablet 50 mg PO Q6H PRN pain #20 ta bs 05/15/23 fast form cast #1 ea 05/19/23 Allergies Allergy/AdvReac Type Severity Reaction Status Date / Time Sulfa (Sulfonamide Allergy ALGY-Swell Verified 05/19/23 14:28 Antibiotics) Lip/Tongue/Throat Review of Systems 2 Const: Reports: body aches; Denies: fever(s) ENMT: Reports: nasal congestion Card: Denies: chest pain Resp: Denies: dyspnea GI: Denies: vomiting Neuro: Reports: headache(s) PFSH ED 2 PFSH: Medical History Aftercare following surgery of the genitourinary system No pertinent past medical history neghx: htn,dm,thyroid,dvt/pe PCP: None Hx of tendinitis R hand Bronchitis Headache Surgical History H/O: hysterectomy 05/29/2021- [facility] performed by Dr. Goff at [facility] Hx of melanoma excision (~1994) thoracic area Hx of removal of cyst right foot Hx of tubal ligation Hx of tonsillectomy History of cholecystectomy Family History Grandmother Diabetes Maternal and Paternal Hypertension Maternal and Paternal Stroke Maternal Thyroid disease Maternal Father Hypertension Stroke Grandfather Hypertension Maternal and Paternal Stroke Paternal Mother Colon cancer dx age 58 Social History Smoking and tobacco/nicotine status: current every day tobacco/nicotine user (1 PPD 27 year history) Female Reproductive History: Spontaneous abortions: No Physical Exam 2 Const: COMMON NORMALS: no acute distress, patient oriented x3 and healthy appearing HENMT: COMMON NORMALS: normocephalic and atraumatic HEAD & SCALP: n ormocephalic and atraumatic THROAT: posterior oropharynx normal Eye: COMMON NORMALS: conjunctivae normal CONJUNCTIVA: Yes conjunctivae normal Neck/C-Spine: COMMON NORMALS: full ROM and supple GENERAL: No Meningeal signs present Chest: COMMONS NORMALS: normal inspection of the chest Resp: COMMON NORMALS: normal respiratory effort, No retractions, No use of accessory muscles and clear to auscultation bilaterally AUSCULTATION: clear to auscultation bilaterally Cardio: COMMON NORMALS: regular rate, regular rhythm and No murmurs present (Cardio) RATE: regular rate RHYTHM: regular rhythm Extremity: COMMON NORMALS: normal to inspection and full ROM Neuro: COMMON NORMALS: patient oriented x3, moves all extremities and no focal motor deficits Psych: COMMON NORMALS: mental status grossly normal, Normal thought process present and cooperative THOUGHT PROCESS: Normal thought process present Skin: COMMON NORMALS: no rashes or lesions noted and no wounds GENERAL SKIN EXAM: no rashes or lesions noted Course 2 Vital Signs: Vital signs: Vital Signs Temperature 97.6 F 05/10/25 02:41 Pulse Rate 102 H 05/10/25 02:41 Respiratory Rate 18 05/10/25 02:41 Blood Pressure 145/98 05/10/25 02:41 Pulse Oximetry 96 05/10/25 02:41 Oxygen Delivery Me thod Room Air 05/10/25 02:41 MDM - URI/Sore Throat Medical Decision Making Patient presents here with congestion likely upper respiratory infection she had a near syncopal episode vital signs here are normal. She feels much improved after Toradol along with fluids headaches likely tension headache she has no signs of meningitis or subarachnoid hemorrhage. She has no signs of pulmonary embolism or arrhythmias causing the near syncope. Her blood work here was normal COVID flu was negative I went over her imaging and labs she is to follow- up with her PCP drink plenty of fluids and return if worsening she understands agrees to plan Medical Records I reviewed the patient's medical records. Lab Data I reviewed the patient's lab results. 05/10/25 02:57 05/10/25 02:57 Radiology Impressions Chest X-Ray 05/10/25 02:26 IMPRESSION: No acute findings. Laboratory Results WBC 11.75 10^3/uL (3.29-11.43) H 05/10/25 02:57 RBC 3.53 10^6/uL (3.85-5.65) L 05/10/25 02:57 Hgb 10.70 g/dL (11.27-16.99) L 05/10/25 02:57 Hct 31.2 % (36-47) L 05/10/25 02:57 MCV 88.4 fl (85-98) 05/10/25 02:57 MCH 30.3 pg (27-33) 05/10/25 02:57 MCHC 34.3 g/dL (30-55) 05/10/25 02:57 RDW 19.2 % (12.1-15.1) H 05/10/25 02:57 Plt Count 233 10^3/cmm (157-399) 05/10/25 02:57 MPV 9.7 fL (7.4-10.4) 05/10/25 02:57 Neut % (Auto) 57.2 % 05/10/25 02:57 Lymph % (Auto) 33.4 % 05/10/25 02:57 Bill[place] % (Auto) 5.0 % 05/10/25 02:57 Eos % (Auto) 3.0 % 05/10/25 02:57 Baso % (Auto) 0.9 % 05/10/25 02:57 Neut # (Auto) 6.73 10^3/uL (1.8-7.7) 05/10/25 02:57 Lymph # (Auto) 3.9 10^3/uL (0.8-4.8) 05/10/25 02:57 Bill[place] # (Auto) 0.6 10^3/uL (0.2-0.9) 05/10/25 02:57 Eos # (Auto) 0.4 10^3/uL (0.0-0.8) 05/10/25 02:57 Baso # (Auto) 0.1 10^3/uL (0.0-0.1) 05/10/25 02:57 Nucleated RBC % (auto) 0 % 05/10/25 02:57 Nucleated RBCs # 0.0 /100WBC 05/10/25 02:57 Sodium 139 mmol/L (136-145) 05/10/25 02:57 Potassium 3.7 mmol/L (3.5-5.1) 05/10/25 02:57 Chloride 100 mmol/L (98-107) 05/10/25 02:57 Carbon Dioxide 26 mmol/L (22-29) 05/10/25 02:57 Anion Gap 16.7 (5-19) 05/10/25 02:57 BUN 11 mg/dL (6-20) 05/10/25 02:57 Creatinine 0.5 mg/dL (0.5-0.9) 05/10/25 02:57 GFR Calculation 134.7 mL/min (90-130) H 05/10/25 02:57 Glucose 102 mg/dL (65-115) 05/10/25 02:57 Calculated Osmolality 288 mOsm/kg (285-295) 05/10/25 02:57 Calcium 8.9 mg/dL (8.5-10.5) 05/10/25 02:57 Total Bilirubin 0.9 mg/dL (0.15-1.2) 05/10/25 02:57 AST 30 U/L (0-32) 05/10/25 02:57 ALT 35 U/L (0-33) H 05/10/25 02:57 Alkaline Phosphatase 87 U/L (35-105) 05/10/25 02:57 Total Protein 7.4 g/dL (6.6-8.7) 05/10/25 02:57 Albumin 4.2 g/dL (3.5-5.2) 05/10/25 02:57 Globulin 3.2 g/dL (1.3-4.6) 05/10/25 02:57 Influenza A (PCR) Negative (Negative) 05/10/25 02:58 Influenza Type B (PCR) Negative (Negative) 05/10/25 02:58 RSV (PCR) Negative (Negative) 05/10/25 02:58 SARS-CoV-2 (PCR) Negative (Negative) 05/10/25 02:58 All radiology interpretation(s) finalized by discharge EKG Data EKG 1: I personally reviewed and interpreted this EKG as follows: EKG interpretation date: 05/10/25 EKG interpretation time: 02:50 Interpretation: nsr hr [address] elevation qrs 113 qtc 447 Discharge Plan Discharge Patient Disposition: Home Clinical Impression: Upper respiratory infection Condition: Stable Prescriptions: No Action ipratropium-albuterol 0.5 mg-3 mg(2.5 mg base)/3 mL solution for nebulization 3 ml inhalation BID Qty: 90 0RF albuterol sulfate 90 mcg/actuation HFA aerosol inhaler 2 puff inhalation Q6H PRN (Reason: shortness of breath or wheezing) Qty: 8.5 1RF metoprolol tartrate 25 mg tablet 25 mg PO BID 30 Days Qty: 60 3RF ondansetron HCl 4 mg tablet 4 mg PO BID PRN (Reason: nausea and vomiting) 14 Days Qty: 28 0RF Emgality Pen 120 mg/mL pen injector 240 mg SUBCUT ONCE Qty: 2 0RF Rx Instructions: Take 240 mg (2mL) subcut injection for first month. Emgality Pen 120 mg/mL pen injector 120 mg SUBCUT .Monthly Qty: 1 1RF Rx Instructions: Take 120 mg (1mL) every month. tramadol 50 mg tablet 50 mg PO Q6H PRN (Reason: pain) Qty: 20 0RF melatonin 10 mg tablet 20 mg PO BEDTIME albuterol sulfate 2.5 mg /3 mL (0.083 %) solution for nebulization 2.5 mg inhalation Q6H PRN (Reason: Shortness Of Breath) 30 Days Qty: 120 0RF docusate sodium 100 mg tablet 100 mg PO DAILY PRN (Reason: Constipation) amitriptyline 25 mg tablet 25 mg PO .at bedtime 30 Days Qty: 30 1RF (DME) fast form cast See Rx Instructions .Route .MEDSUPPLY Qty: 1 0RF Rx Instructions: As directed multivitamin Tablet 1 tab PO DAILY cranberry fruit 400 mg Capsule 800 mg PO DAILY Rx Instructions: administer with a meal aspirin 81 mg tablet,delayed release (DR/EC) 81 mg PO DAILY Qty: 30 0RF Discharge Orders: Discharge ED (Routine); Ordered 05/10/25 Ordered By: Leonardo Cardenas Referrals: June Heredia MD [Primary Care Provider, Family Practice] - 4-7 days Discharge Diet: Advance as tolerated Discharge Activity: Resume usual activity Patient Instructions: Upper Respiratory Infection (ED) Print Language: Chinese Coding Level of Care Code ED Chemical Manager for Maura Casas
[2025-05-10 03:03] LABS: Hematocrit 31.2 % (36-47); Hemoglobin 10.70 g/dL (11.27-16.99); Mean Corpuscular HGB Conc 34.3 g/dL (30-55); Mean Corpuscular Hemoglobin 30.3 pg (27-33); Mean Corpuscular Volume 88.4 fl (85-98); Nucleated Red Blood Cells % 0 %; Platelet Count 233 10^3/cmm (157-399); Red Blood Count 3.53 10^6/uL (3.85-5.65); White Blood Count 11.75 10^3/uL (3.29-11.43)
[2025-05-10 03:19] LABS: Alanine Aminotransferase 35 U/L (0-33); Albumin Level 4.2 g/dL (3.5-5.2); Alkaline Phosphatase 87 U/L (35-105); Anion Gap 16.7 (5-19); Aspartate Amino Transferase 30 U/L (0-32); Blood Urea Nitrogen 11 mg/dL (6-20); Calcium 8.9 mg/dL (8.5-10.5); Carbon Dioxide 26 mmol/L (22-29); Chloride 100 mmol/L (98-107); Creatinine Clr Calc Pharmacy 163.7530; Globulin 3.2 g/dL (1.3-4.6); Glucose 102 mg/dL (65-115); Osmolality Calculated 288 mOsm/kg (285-295); Potassium 3.7 mmol/L (3.5-5.1); Sodium 139 mmol/L (136-145); Total Protein 7.4 g/dL (6.6-8.7)
[2025-05-10 03:41] LABS: Respiratory Syncytial Virus Ce NEGATIVE (Negative); SARS-CoV-2 PCR NEGATIVE (Negative)
== END 2025-05-10 03:52 | disposition home or self-care (01) ==
PROVIDERS: Emergency Provider Emergency Medicine; PCP Family Medicine
DX: J06.9 Acute upper respiratory infection, unspecified (principal); Z11.52 Encounter for screening for COVID-19; Z79.82 Long term (current) use of aspirin; F17.210 Nicotine dependence, cigarettes, uncomplicated
CPT/HCPCS: 36415; 71045; 80053; 85025; 87637; 93005; 96361; 96374; 96375; 99285; J1100; J1885; J7030

== ENCOUNTER 2025-08-14 13:51 | Emergency (ER) | payer BC, SELFPAY ==
[2025-08-14 13:53] VITALS: BP 141/90; PULSE 109; TEMP 36.8; O2SAT 96; BMI 46.5
--- OUTSIDE RECORDS SUMMARY | 2025-08-14 14:08 | XMS_ITS | Clinical Summary ---
Author Organization [facility] Address [address] [place] [address] Care Team Providers Care Theatrical Scenic Designer Name Role Phone Shauna Orta Primary Care Provider [phone] Allergies Active Allergy Reactions Criticality Noted Date [...] Encounters Date Type Department Care Team Description 08/08/2025 External Device Data [facility] ABSTRACTION Provider, Abstract 07/18/2025 External Device Data [facility] ABSTRACTION Provider, Abstract 06/06/2025 External Device Data [facility] ABSTRACTION Provider, Abstract from Last 3 Months Family History Medical [...] of 3 - 19+ 3-dose series) 2000 BREAST CANCER SCREENING 2021 PAP SMEAR 02/16/2022 02/16/2019, 02/16/2019 CERVICAL CANCER SCREENING 02/17/2024 HPV/Cotest (21-29) 02/17/2024 02/16/2019 HPV/Cotest (30-65) 02/17/2024 02/16/2019 Preventative Visit- Commercial 08/17/2024 02/16/2019 INFLUENZA VACCINE (#1) 2025 02/04/2019 COVID-19 Vaccine (5 - 2024-2 6 season) 2025 07/03/2022, 11/15/2021, 10/17/2020, Additional history exists Pre-Diabetes and Diabetes Screening 04/19/2028 04/19/2025 HPV VACCINES (No Doses Required) Completed Procedures Procedure Name Priority Date/Time Associated Diagnosis Comments HEMOGLOBIN A1C Routine 04/19/2025 8:48 AM CDT Hyperglycemia Family history of diabetes mellitus (DM) Dizziness CERV/VAG CYTO SCREEN PAP RLFX HPV Routine 02/16/2019 8:58 AM CDT from Last 3 Months or Most Recently Relevant to Health Maintenance Results * HEMOGLOBIN A1C (04/19/2025 8:48 AM CDT) HEMOGLOBIN A1C 4.7 <5.7 % [facility] Comment: For the purpose of screening for the presence of diabetes: <5.7% Consistent with the absence of diabetes 5.7-6.4% Consistent with increased risk for diabetes (prediabetes) > or =6.5% Consistent with diabetes This assay result is consistent with a decreased risk of diabetes. Currently, no consensus exists regarding use of hemoglobin A1c for diagnosis of diabetes in children. According to [place] Diabetes Association (ADA) guidelines, hemoglobin A1c <7.0% represents optimal control in non- diabetic patients. Different metrics may apply to specific patient populations. Standards of Medical Care in Diabetes(ADA). ESTIMATED AVERAGE GLUCOSE (MG/DL) 88 mg/dL [facility] ESTIMATED AVERAGE GLUCOSE (MMOL/L) 4.9 mmol/L [facility] Comment: Test Performed at: [facility] [address] [place] [address] Linda Urbina MD Blood 04/19/2025 8:48 AM CDT 04/20/2025 3:05 AM CDT us Calvin Joyner COMPUTER PROGRAMMING MANAGER CHEMISTRY ORDERABLES Final Result [facility] [phone] [facility] [address] [place] [address] * CERV/VAG CYTO SCREEN PAP RLFX HPV (02/16/2019 8:58 AM CDT) CLINICAL INFORMATION Routine exam 02/24/2019 10:23 AM CDT [facility] MENSTRUAL PERIOD [id number] 02/24/2019 10:23 AM CDT [facility] PAP: H/O ABN PAP 02/24/2019 10:23 AM CDT [facility] BX: INFORMATION NOT PROVIDED 02/24/2019 10:23 AM CDT [facility] Endocervix 02/24/2019 10:23 AM CDT [facility] ADEQUAC[facility]: SEE COMMENT 02/24/2019 10:23 AM CDT [facility] Comment: Satisfactory for evaluation. Endocervical/transformation zone component present. PAP INTERP Negative for intraepithelial lesion or malignancy. 02/24/2019 10:23 AM CDT [facility] COMMENT This Pap test has been evaluated with computer assisted technology. 02/24/2019 10:23 AM CDT [facility] POLISHER AND BUFFER: SEE COMMENT 2018 10:23 AM CDT [facility] Comment: DDS, CT(ASCP) CT screening location: [place] [address] [address] [address] [address] POLISHER AND BUFFER: SEE COMMENT 02/24/2019 10:23 AM CDT [facility] Comment: YQ, CT(ASCP) CT screening location: [place] [address] [address] Setrn EXPLANATORY NOTE SEE COMMENT 019 10:23 AM CDT [facility] Comment: EXPLANATORY NOTE: The Pap is [...] AM CDT 02/21/2019 6:11 AM CDT Narrative [facility] - 02/24/2019 10:23 AM CDT Performing Organization Information: Site ID: [place] Name: [facility] Address: [address] [place] [address] Director: Linda Urbina Carmen Cowan COMPUTER PROGRAMMING MANAGER PATHOLOGY/CYTOLOGY ORDERABLES Final Result [facility] [phone] [facility] from Last 3 Months or Most Recently Relevant to Health Maintenance Insurance BCBS PPO Care Teams Theatrical Scenic Designer Relationship Specialty Start Date End Date Shauna Orta DO [address] [place] [facility] [place] [address] PCP - General Family Practice 12/12/19
--- OUTSIDE RECORDS SUMMARY | 2025-08-14 14:08 | XMS_ITS | Encounter Summary ---
Author Organization [facility] Address [address] [place] [address] Care Team Providers Care Oil Pipeline Dispatcher Name Role Phone Shauna Orta DO Primary Care Provider [phone] Encounter Details Date Type Department Care Team (Late st Contact Info) Description 08/08/2025 External Device Data [facility] ABSTRACTION Provider, Abstract NO ADDRESS ON FILE Social History Tobacco Use Types Packs/Day Years Used Date Smoking Tobacco: Every Day Cigarettes Passive Smoke Exposure: Current Smokeless Tobacco: Never Alcohol Use Standard Drinks/Week Comments No 0 (1 standard drink = 0.6 oz pur e alcohol) Comments Unknown Sex and Gender Information Value Date Recorded Sex Assigned at Not on file Legal Sex Female 10:34 PM CDT Gender Identity Not on file Sexual Orientation Not on file documented as of this encounter Plan of Treatment Not on file documented as of this encounter Visit Diagnoses Not on filedocumented in this encounter Additional Health Concerns Assessment Noted Time PHQ-9 Depression Total Score: 1 04/19/20 25 8:16 AM CDT documented as of this encounter Care Teams Oil Pipeline Dispatcher Relationship Specialty Start Date End Date Shauna Orta DO [address] [place] [facility] [place] [facility] [place] [id number] PCP - General Family Practice 12/12/19 documented as of this encounter
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
--- NOTE | 2025-08-14 14:41 | XR_ITS ---
WS: [id number] Lumbar spine, 3 views, 08/14/2025 Clinical Data: injury/pain Comparison: None. Findings: No compression fractures are seen. There is a 1.4 cm anterior subluxation of L5 on S1 with bilateral spondylolysis. There is disc narrowing at this level. The transverse processes and SI joints are normal. There are cholecystectomy clips in the right upper quadrant. XR/XR lumbar spine 2-3V* [id number] Impression: 1. Anterior subluxation of L5 on S1 with bilateral spondylolysis. 2. L5-S1 disc narrowing.
[2025-08-14 15:38] VITALS: BP 122/89; PULSE 78; RESP 16; O2SAT 97
== END 2025-08-14 15:39 | disposition home or self-care (01) ==
PROVIDERS: Emergency Provider Physician Assistant; PCP Family Medicine
DX: M47.816 Spondylosis without myelopathy or radiculopathy, lumbar region (principal); Z79.82 Long term (current) use of aspirin; F17.210 Nicotine dependence, cigarettes, uncomplicated
CPT/HCPCS: 72100; 96372; 99284; J1100; J1885